=== PATIENT | female | born 1930 | race Caucasian/White ===

== ENCOUNTER 2020-05-20 00:09 | Inpatient (IN) ==
--- NOTE | 2020-05-20 00:28 | Emergency Department Note ---
Impression & Plan Altered mental status, Acute confusion, Generalized weakness, Fall ED Provider Note Name: MARI NERI Age: 89 Sex: F Arrives Via: Ambulance Informant: EMS, Nursing ED Provider: Johnathan Dang MD Chief Complaint: Found on ground Impression: Altered Mental Status Acute Confusion Generalized Weakness Fall Medical Decision Makin yr female with complicated PMH (Metastatic Breast CA, CHF, CKD, DMII, HTN, Pulm HTN, COPD, Heart block with pacemaker, GERD, TIA, Cdiff) recently discharged from [facility], transferred to [facility] where she was at for less the 24 hours. She was found laying on floor this evening with unknown downtime and EMS contacted. On exam patient appears to have some very mild right weakness which is variable and difficult quantify given her somnolence, severe hard of hearing and doesn't follow commands well (and later in exam left hand seemed weak). Furthermore right exotropia noted with right eye. Was able to get records and appears that this somnolence has been increasing and furthermore she has bleeding risks with thrombocytopenia. Given uncertainty as well as risks I felt that stroke alert was not indicated, not would TPA be possible and with her symptoms she would not be intervention candidate. Fortunately daughter arrived shortly after from [place] and notes that these symptoms have been worsening over a several week period. Extensive work-up done with CT head showing possible subacute vs chronic infarct right temporal region, along with chronic other age related findings. She does not appear to be acutely infected. No evidence ACS. No evidence trauma. Without hypoxia nor respiratory difficulty I doubt PE as cause for confusion. I suspect that over last week or two she had some sort of stroke while off asa/anticoagulation given her Thrombocytopenia. Will hold any anticoagulation awaiting further confirmation cva History recently has been that over the last month quite complicated course with PNA and UTI followed by [facility], several weeks at [facility] and due to no local NH in [place] available she was transferred out here to [facility]. Triage/Nursing Notes reviewed by Me Additional history obtained from outside records obtained Differentials:Infection, dehydration, metabolic abnormality, hypo/hyperglyce derrick, electrolyte disturbance, anemia, hypoxia, cardiac sources, intracerebral event, toxicologic, neurologic, as well as other pathologies. Vital Signs: reviewed and remarkable for HTN Interventions: saline lock Labs:Reviewed and remarkable for thrombocytopenia Imaging:X ray results are stated below per my interpretation: Chest: 1 view: No infiltrate, no effusion, normal cardiac border. Pelvis: 1 vewi: no fracture no dislocation [employer] Radiologist interpretation reviewed by me: CT head cervical. No acute findings. 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 No previous for comparison Cardiac/Tele Monitoring: Cardiac Monitoring: An Order was placed for continuous cardiac monitoring. The monitor shows a rate of 70 with a paced rhythm. Consults:Dr Sofiya Leggett Hospitalist Plan: Disposition:Hospitalization. Referred to: PCP Condition: Fair Blood pressure:Elevated - Referred to Hospitalist Prescriptions:None PDMP: n/a History of Present Illness:89 / F arrives for evaluation of fall. Patient just arrived to [facility] yesterday. This evening she was found laying on the ground. Unknown when she fell. Unknown why she feel. Patient apparently at baseline is quite somnolent and minimally responsive per EMS and that she is currently at her baseline. She was given no medications prior to arrival. No known symptoms other than earlier apparently shelter thought she had back pain. She reportedly had stroke in past. ROS: Patient not responsive enough for ROS Past Medical History:Metastatic Breast CA, CHF, CKD, DMII, HTN, Pulm HTN, COPD, Heart block with pacemaker, GERD, TIA, Cdiff Past Surgical History:Lumpectomy, Pacemaker, Partial Mastectomy, Rotator Cuff Family History:DMII, Cancer throughout family including parents and siblings. Daughter with breast CA Social History:From shelter, Previous smoker, , no etoh/drugs Home Medications:See Below. Allergies:See Below Vitals:Blood Pressure: 172/91, Pulse 69, RR 16, T 36.5C, O2 100% on NC 3L Physical Exam: GENERAL: Patient is elderly, chronically unwell appearing and in no acute distress. EYES: No scleral icterus, unremarkable pupils. ENT: Mucous membranes moist, no nasal congestion. NECK: No masses appreciated, nomeningismus, trachea is midline. RESPIRATORY: No dyspnea. Clear to auscultation and equal bilaterally. No wheeze, no rhonchi. CARDIOVASCULAR: Regular rate and rhythm.No murmurs, rubs, gallops appreciated. GASTROINTESTINAL: Abdomen soft, non-tender, no peritonitis.Bowel sounds positive.No masses appreciated. BACK: No midline tenderness, no CVA tenderness EXTREMITIES: Normal motion all extremities, no cyanosis, no edema. NEUROLOGIC: Looking around the room, weakly answers some questions, appears to have right sided neglect and may be weak but unable to get good exam as she doesn't follow commands, questionable right facial weakness vs just right eye exotropia SKIN: No rash, no jaundice, no diaphoresis. GCS: 14 ED Course: Times/Reassessments: Stable, somnolent, maintains O2 on NC Johnathan Dang MD Past Med/Surg History Social History Preferred Language: Ukrainian Communication Ability: Effective Livestock [employer]er Required: No Beliefs That Will Affect Care: None Current Living Situation: Rehab Other Information That Helps Us Care for You: No Feels Safe at Home: Yes Safety Concerns: Feels Safe At This Time Smoking Status: Never smoker Hx Alcohol Use: No Hx Substance Use: No Allergies Allergies Allergy/AdvReac Type Severity Reaction Status Date / Time pollen extracts Allergy Unknown Verified 05/20/20 02:32 Home Meds Home Medications Medication Instructions Recorded Confirmed acetaminophen 500 mg PO Q6H PRN MDD 3000mg/24hr 05/20/20 05/20/20 albuterol sulfate 2 puff INHALATION Q4 PRN 05/20/20 05/20/20 albuterol sulfate 2.5 mg INHALATION Q4 PRN 05/20/20 05/20/20 amoxicillin 2,000 mg PO ONCE PRN 05/20/20 05/20/20 aspirin 81 mg PO DAILY 05/20/20 05/20/20 calcium carbonate-vitamin D3 1 cap PO BID 05/20/20 05/20/20 [Calcium 600 + D(3)] carvedilol 12.5 mg PO BIDM 05/20/20 05/20/20 citalopram 20 mg PO DAILY 05/20/20 05/20/20 cranberry 180 mg PO BID 05/20/20 05/20/20 docusate sodium [Colace Clear] 50 mg PO BID 05/20/20 05/20/20 ferrous gluconate 240 mg PO DAILY 05/20/20 05/20/20 fluticasone propion-salmeterol 1 inh INHALATION BID 05/20/20 05/20/20 [Wixela Inhub] fluticasone propionate [Flonase 1 spray INTRANASAL DAILY 05/20/20 05/20/20 Allergy Relief] furosemide 40 mg PO BID 05/20/20 05/20/20 loratadine 10 mg PO DAILY 05/20/20 05/20/20 vtzluuvb-opj-PD-lycopen-lutein 1 tab PO DAILY 05/20/20 05/20/20 [Centrum Silver] nitroglycerin [Nitrostat] 0.4 mg SUBLINGUAL UD PRN 05/20/20 05/20/20 pantoprazole 40 mg PO DAILY 05/20/20 05/20/20 polyethylene glycol 3350 [Miralax] 17 g PO DAILY 05/20/20 05/20/20 simethicone 80 mg PO Q6 PRN 05/20/20 05/20/20 simvastatin 40 mg PO PM 05/20/20 05/20/20 vancomycin [Firvanq] 500 mg PO Q6 05/20/20 05/20/20 Results & Data (ED) Vital Signs Vital Signs - 24 hr 05/20/20 00:23 05/20/20 02:00 05/20/20 03:45 Temperature 36.5 C Temperature Source Oral Pulse Rate 80 Pulse Rate [Right Finger] 68 69 Pulse Rhythm Regular Pulse Strength Normal Respiratory Rate 16 18 16 Respiratory Effort / Characteristics Non-Labored Spontaneous Respiratory Depth Normal Normal Normal Blood Pressure 163/100 H Blood Pressure [Right Arm] 163/100 H 172/91 H Blood Pressure Mean 121 Blood Pressure Mean [Right Arm] 121 118 Blood Pressure Position Lying Blood Pressure Position [Right Arm] Lying Lying Pulse Oximetry 100 100 100 Oxygen Delivery Method Nasal Cannula Room Air Nasal Cannula Oxygen Flow Rate 3 Sepsis Recent Fever Within 48 Hours No Sepsis Action Taken by Nursing No Action Required Laboratory Data Result diagrams: 05/20/20 01:07 05/20/20 01:07 Lab Results 05/20/20 05/20/20 05/20/20 Range/Units 00:46 01:07 01:07 WBC (4.8-10.8) K/uL RBC (4.2-5.4) M/uL Hgb (12.0-16.0) g/dL Hct (37-47) % MCV (80-100) fL MCH (25-34) pg MCHC (32-36) g/dL RDW Std Deviation (36.4-46.3) fL RDW Coeff of Aleida (11.5-14.5) % Plt Count (130-400) K/uL MPV (7.4-10.4) fL Immature Gran % (Auto) % Neut % (Auto) % Lymph % (Auto) % Nobles % (Auto) % Eos % (Auto) % Baso % (Auto) % Neut # (Auto) (1.4-6.5) K/uL Lymph # (Auto) (1.2-3.4) K/uL Nobles # (Auto) (0.11-0.59) K/uL Eos # (Auto) (0-0.5) K/uL Baso # (Auto) (0-0.2) K/uL Immature Gran # (Auto) (0.00-0.02) K/uL Absolute Nucleated RBC (0-0) K/uL Nucleated RBC % (auto) % Platelet Estimate (Normal) Macrocytosis PT 12.3 H (9.0-12.0) Seconds INR 1.2 H (0.9-1.1) Sodium 147 H (136-145) mmol/L Potassium 3.7 (3.5-5.1) mmol/L Chloride 114 H (98-107) mmol/L Carbon Dioxide 29 (21-32) mmol/L Anion Gap 4.0 (3-11) BUN 15 (7-18) mg/dl Creatinine 0.65 (0.6-1.2) mg/dl Est Cr Clr Drug Dosing 66.2 ml/min Est GFR ( Amer) 92.5 Est GFR (Non-Af Amer) 79.8 BUN/Creatinine Ratio 23.1 H (10-20) Glucose 134 H (70-99) mg/dl Calcium 7.9 L (8.5-10.1) mg/dl Total Creatine Kinase 36 (26-192) U/L Troponin I 0.025 (0-0.045) ng/ml Urine Color Dark Yellow Urine Appearance Clear (Clear) Urine pH 5.0 (4.5-7.5) Ur Specific [place] 1.023 (1.000-1.030) Urine Protein Trace H (Negative) Urine Glucose (UA) Negative (Negative) Urine Ketones Negative (Negative) Urine Blood Negative (Negative) Urine Nitrite Negative (Negative) Urine Bilirubin Negative (Negative) Urine Urobilinogen Negative (Negative) Ur Leukocyte Esterase Trace H (Negative) Urine WBC (Auto) 1-5 (0-5) /hpf Urine RBC (Auto) 0-4 (0-4) /hpf U Hyaline Cast (Auto) 1-5 (0-5) /lpf U Epithel Cells (Auto) >30 H (0-5) /lpf Urine Bacteria (Auto) Negative (Negative) 05/20/20 Range/Units 01:07 WBC 5.04 (4.8-10.8) K/uL RBC 2.95 L (4.2-5.4) M/uL Hgb 10.2 L (12.0-16.0) g/dL Hct 33.1 L (37-47) % MCV 112.2 H (80-100) fL MCH 34.6 H (25-34) pg MCHC 30.8 L (32-36) g/dL RDW Std Deviation 70.5 H (36.4-46.3) fL RDW Coeff of Aleida 17.3 H (11.5-14.5) % Plt Count 73 L (130-400) K/uL MPV 11.2 H (7.4-10.4) fL Immature Gran % (Auto) 6.7 % Neut % (Auto) 66.5 % Lymph % (Auto) 18.3 % Nobles % (Auto) 7.7 % Eos % (Auto) 0.4 % Baso % (Auto) 0.4 % Neut # (Auto) 3.35 (1.4-6.5) K/uL Lymph # (Auto) 0.92 L (1.2-3.4) K/uL Nobles # (Auto) 0.39 (0.11-0.59) K/uL Eos # (Auto) 0.02 (0-0.5) K/uL Baso # (Auto) 0.02 (0-0.2) K/uL Immature Gran # (Auto) 0.34 H (0.00-0.02) K/uL Absolute Nucleated RBC 0.03 H (0-0) K/uL Nucleated RBC % (auto) 0.6 % Platelet Estimate Decreased L (Normal) Macrocytosis Present PT (9.0-12.0) Seconds INR (0.9-1.1) Sodium (136-145) mmol/L Potassium (3.5-5.1) mmol/L Chloride (98-107) mmol/L Carbon Dioxide (21-32) mmol/L Anion Gap (3-11) BUN (7-18) mg/dl Creatinine (0.6-1.2) mg/dl Est Cr Clr Drug Dosing ml/min Est GFR ( Amer) Est GFR (Non-Af Amer) BUN/Creatinine Ratio (10-20) Glucose (70-99) mg/dl Calcium (8.5-10.1) mg/dl Total Creatine Kinase (26-192) U/L Troponin I (0-0.045) ng/ml Urine Color Urine Appearance (Clear) Urine pH (4.5-7.5) Ur Specific [place] (1.000-1.030) Urine Protein (Negative) Urine Glucose (UA) (Negative) Urine Ketones (Negative) Urine Blood (Negative) Urine Nitrite (Negative) Urine Bilirubin (Negative) Urine Urobilinogen (Negative) Ur Leukocyte Esterase (Negative) Urine WBC (Auto) (0-5) /hpf Urine RBC (Auto) (0-4) /hpf U Hyaline Cast (Auto) (0-5) /lpf U Epithel Cells (Auto) (0-5) /lpf Urine Bacteria (Auto) (Negative) Discharge Plan Visit Data *Final* Discharge Date/Time: 05/20/20 04:40 Chief Complaint: Fall Stated Complaint: FALL/BACK PAIN ED Provider: Johnathan Dang Discharge Problem: Altered mental status, Acute confusion, Generalized weakness, Fall Patient Disposition: Admitted As Inpatient Discharge Instructions Interventions: ED Discharge Assessment Last Done: 05/20/20 04:40 Discharge Problem: Altered mental status Qualifiers: Altered mental status type: stupor Qualified Code(s): R40.1 - Stupor Fall Qualifiers: Encounter type: initial encounter Qualified Code(s): W19.XXXA - Unspecified fall, initial encounter
[2020-05-20 01:34] LABS: INR 1.2 (0.9-1.1); Prothrombin Time 12.3 Seconds (9.0-12.0)
[2020-05-20 01:35] LABS: Appearance Urine Clear (Clear); Bacteria Urine Automated Negative (Negative); Bilirubin Urine Negative (Negative); Blood Urine Negative (Negative); Color Urine Dark Yellow; Epithelial Cell Urine Auto >30 /lpf (0-5); Glucose Urine UA Negative (Negative); Ketones Urine Negative (Negative); Leukocyte Esterase Urine Trace (Negative); Nitrite Urine Negative (Negative); Protein Urine Trace (Negative); RBC Urine Automated 0-4 /hpf (0-4); Specific Gravity Urine 1.023 (1.000-1.030); Urobilinogen Urine Negative (Negative)
[2020-05-20 01:38] LABS: BUN Creatinine Ratio 23.1 (10-20); Calcium 7.9 mg/dl (8.5-10.1); Creatinine Clr Calc Pharmacy 66.2 ml/min; Est GFR (African American) 92.5; Est GFR (Non-African American) 79.8; Potassium 3.7 mmol/L (3.5-5.1)
[2020-05-20 01:42] LABS: Troponin I 0.025 ng/ml (0-0.045)
[2020-05-20 01:49] LABS: Hematocrit (blood only) 33.1 % (37-47); Hemoglobin 10.2 g/dL (12.0-16.0); Mean Corpuscular Hemoglobin 34.6 pg (25-34); Mean Corpuscular Hgb Conc 30.8 g/dL (32-36); Mean Corpuscular Volume 112.2 fL (80-100); Mean Platelet Volume 11.2 fL (7.4-10.4); Nucleated RBC # (auto) 0.03 K/uL (0-0); Nucleated RBC % (auto) 0.6 %; Platelet Count 73 K/uL (130-400); RDW Coefficient of Variation 17.3 % (11.5-14.5); RDW Standard Deviation 70.5 fL (36.4-46.3); Red Blood Count 2.95 M/uL (4.2-5.4); White Blood Count 5.04 K/uL (4.8-10.8)
[2020-05-20 01:50] LABS: Basophils # (auto) 0.02 K/uL (0-0.2); Basophils % (auto) 0.4 %; Eosinophils # (auto) 0.02 K/uL (0-0.5); Eosinophils % (auto) 0.4 %; Immature Granulocytes # (auto) 0.34 K/uL (0.00-0.02); Immature Granulocytes % (auto) 6.7 %; Lymphocytes # (auto) 0.92 K/uL (1.2-3.4); Lymphocytes % (auto) 18.3 %; Macrocytosis Present; Monocytes # (auto) 0.39 K/uL (0.11-0.59); Monocytes % (auto) 7.7 %; Neutrophils # (auto) 3.35 K/uL (1.4-6.5); Neutrophils % (auto) 66.5 %; Platelet Estimate Decreased (Normal)
[2020-05-20] MEDS ORDERED: SIMETHICONE 80 MG CHEW PO PRN (05:58)
[2020-05-20] MEDS ORDERED: ACETAMINOPHEN 325 MG TAB PO PRN (05:58)
[2020-05-20] MEDS ORDERED: ALBUTEROL HFA 8 GM INHALER INH PRN (05:58)
[2020-05-20] MEDS ORDERED: ONDANSETRON INJ 2 MG/ML 2 ML VIAL IV PRN (05:58)
[2020-05-20] MEDS ORDERED: ALBUTEROL 0.083% NEBU SOLN 3 ML VIAL INH PRN (05:58)
[2020-05-20] MEDS ORDERED: PHARMACIST DISCHARGE MED REC CONSULT PRN (05:58)
[2020-05-20] MEDS ORDERED: NITROGLYCERIN SL 0.4 MG/TAB TAB SL PRN ×2 (05:58)
--- NOTE | 2020-05-20 06:40 | History and Physical Report ---
DATE OF ADMISSION: 05/20/2020 CHIEF COMPLAINT: Status post fall. HISTORY OF PRESENT ILLNESS: This 89-year-old female with past medical history significant for type 2 diabetes, not on any medications, chronic kidney disease stage III, hyperlipidemia, COPD, nocturnal hypoxemia, history of complete heart block status post pacemaker, hypertension, diastolic CHF, history of CVA in the past, hypertension, GERD, C. diff colitis, urinary incontinence, metastatic breast cancer, chronic bilateral thoracic back pain, chemo induced neutropenia, thrombocytopenia, history of pancytopenia. Currently at [facility] who comes with a fall. The patient had a couple of courses of pneumonia and was admitted to [place]. After that about 2-1/2 weeks ago, she developed diarrhea and C. diff was positive, she went to the ER and got discharged and then she became more lethargic at home. The patient lives with her daughter. Daughter works in [employer] [place]. Daughter noticed that she was likely having difficulty speaking. She thought the patient had a stroke and she called to EMS and was admitted to [place] where she was treated for infectious C. difficile colitis. She stayed there for 2-1/2 weeks and she also had ascites, taken about 730ml of fluid and was treated with antibiotics for spontaneous bacterial peritonitis. She still has some few more courses of p.o. vancomycin. The patient since then become very weak. As per daughter, she did not ambulate since she got admitted to [place] and she is somewhat confused. She couple of times had aspiration episodes at [place]. As per daughter, speech is not back to her normal. 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 Her Plavix was stopped secondary to thrombocytopenia. Felodipine was discontinued due to low blood pressure and Coreg dose was reduced. She has signed POLST form as per [place] and she is DNR. She was discharged to [facility] yesterday. She was found on the floor, no one saw her falling on the floor and she does not know how long she stayed there and she was brought in here and imaging studies CAT scan shows subacute or right chronic temporal lobe infarct. Currently, the patient is somewhat drowsy, arousable, can tell her name, knows that she is in the hospital, can tell today's date. Denies any chest pain, no nausea, no abdominal pain, no headaches, no fever, no chills, no cough, no shortness of breath. Hemodynamics are stable, could not get complete history from the patient as patient is somewhat drowsy. All history we got from the daughter who is at bedside and from the records. ALLERGIES: POLLEN EXTRACTS. PAST MEDICAL HISTORY: As mentioned above. PAST SURGICAL HISTORY: Right breast lumpectomy, colonoscopy, cervical lesion biopsy, pacemaker placement, ligation of oviducts, left partial mastectomy, right partial mastectomy, appendectomy, removal of cataracts, sigmoidoscopy with biopsy, total hip arthroplasty. MEDICATIONS: The patient is on Coreg 12.5 mg p.o. b.i.d., Mylicon 80 mg p.o. q. 6 hours p.r.n., vancomycin 10 mL every 6 hours for 4 more days, albuterol nebulization every 4 hours p.r.n., MiraLax 17 grams p.o. daily, Nitrostat 0.4 mg sublingual p.r.n., albuterol 2 puffs every 4 hours p.r.n., Advair Diskus 100/50 one puff b.i.d., Lasix 40 mg p.o. b.i.d., citalopram 20 mg p.o. daily, Protonix 40 mg p.o. daily, simvastatin 40 mg p.o. daily, Tylenol 500 mg p.o. q. 6 hours p.r.n., Colace 50 mg p.o. b.i.d. p.r.n., Flonase 2 sprays into each nostril daily, ferrous sulfate 240 mg p.o. daily, cranberry 180 mg p.o. b.i.d., amoxicillin 2 grams 1 hour prior to dental work, Claritin 10 mg p.o. daily, oxygen 3 liters at bedtime, calcium plus vitamin D 1 tablet p.o. b.i.d., aspirin 81 mg p.o. daily, Centrum Silver 1 tablet daily. FAMILY HISTORY: Significant for daughter has breast cancer. Brother had lung cancer. Father had cancer. Sister has breast cancer. Brother has diabetes. Sister has diabetes. SOCIAL HISTORY: , currently lives with daughter. Quit smoking in , smoked 1 pack a day for 2 years. No alcohol use, no drug use. REVIEW OF SYMPTOMS: As per HPI, could not get complete review of symptoms as the patient is somewhat drowsy. PHYSICAL EXAMINATION: VITAL SIGNS: Temperature 36.5, pulse 68, respiratory rate 18, blood pressure 163/-100 and oxygen 100% on room air. HEENT: No pallor, no icterus. Pupil equal, round, and reactive to light. 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 NECK: No JVD, no neck masses. CARDIOVASCULAR: S1, S2 heard, regular rate and rhythm, no murmur, no gallop. RESPIRATORY SYSTEM: Normal AP diameter. No accessory muscle use. No wheezing, no crackles. ABDOMEN: Soft, bowel sounds present, nontender. No distention. CENTRAL NERVOUS SYSTEM: Alert and oriented x3. Speech is clear. Tongue is midline. Obeys simple commands, not able to fully lift her upper extremities and also not able to lift her lower extremities. Babinski negative. EXTREMITIES: Bilateral lower extremity, mild edema seen. No erythema seen. LABORATORY DATA: WBC 5, hemoglobin 10.2, hematocrit 33.1, platelets 73. PT 12.3, INR 1.2. Sodium 147, potassium 3.7, chloride 114, CO2 29, BUN 15, creatinine 0.6, serum glucose 134, calcium 7.9. Troponin I 0.025. Urinalysis negative, trace leukocyte esterase. CT head 2.4 cm ill-defined density in the right temporal lobe, likely infarct possible subacute versus chronic. CT cervical spine, severe osteoporosis at C5-C6 and C6-C7, no acute cervical spine fracture or subluxation. Chest x-ray, no acute findings. EKG: Ventricular paced rhythm with PVCs at a rate of 72. ASSESSMENT AND PLAN: This 89-year-old female who had a fall. 1. Fall: Do not know how long she stayed on the floor.Very weak. She had a recent hospitalization at [place] for 2-1/2 weeks, since then she is very weak, she is not ambulating. Question of some slurred speech, question of stroke, CAT scan showing right temporal lobe chronic versus subacute infarct. Cannot do MRI scan because of the pacemaker> Weakness mostly from could be deconditioning. We will admit to med/tele. We will get a carotid Doppler, echocardiogram, speech evaluation, PT/OT and neurology evaluation. The patient is on aspirin. Plavix was stopped because of low platelets at [place], closely monitor in the med/tele. 2. Diabetes: Not on medication, follow HbA1c levels, placed on diabetic diet, follow blood sugars. 3. Chronic obstructive pulmonary disease: Currently stable. Continue home inhalers. 4. Clostridium difficile colitis: To Complete a course of p.o. vancomycin. 5. Complete heart block: Status post pacemaker. 6. Hypertension: Coreg, Lasix. Will monitor the blood pressure. 7. Metastatic breast cancer: Currently chemo is on hold. Follow with hematology/oncology after discharge. 8. Chronic kidney disease stage III: We will follow the labs. 9. Chemotherapy-induced neutropenia, currently, thrombocytopenia: Follow the labs. 10. Nocturnal hypoxemia: Oxygen bedtime. 11. Chronic diastolic chf. On Lasix. Monitor for volume overload. 11. Deep venous thrombosis prophylaxis: Sequential compression devices for now. DISPOSITION: Monitor in med/surg tele. PT and OT. Social Service to help with discharge planning. Code status: DNR/DNI as per my discussion with the daughter. [place]
[2020-05-20] MEDS: RASPBERRY SYRUP 5 ML UDP PO SCH ×3 (06:53→17:00)
[2020-05-20] MEDS: VANCOMYCIN HCL 500 MG/10 ML SOLN PO SCH ×3 (06:53→17:00)
[2020-05-20] MEDS ORDERED: RASPBERRY SYRUP 5 ML UDP PO SCH (07:00)
--- NOTE | 2020-05-20 07:33 | CT Scan Report ---
CT SCAN OF THE BRAIN WITHOUT IV CONTRAST CLINICAL HISTORY: Fall. COMPARISON STUDY: No priors. TECHNIQUE: Unenhanced axial CT scan of the brain is performed from the vertex to the skull base. A do se lowering technique was utilized adhering to the principles of ALARA. CT DOSE: 922.06 mGy.cm FINDINGS: Brain parenchyma: There are age-related involutional changes noting mild to moderate subcortical and periventricular microangiopathic change. There is focal loss of adams-white matter differentiation id entified in the right temporal lobe on image #10. This is concerning for subacute ischemia. There is no hemorrhage or mass effect. Adams-white matter differentiation is otherwise preserved. There are chr onic lacunar infarcts identified in the left caudate head and the left basal ganglia. No extra-axial fluid collection is seen. Ventricles, sulci, cisterns: Prominent secondary to involutional change. Intracranial vasculature: There is atherosclerotic calcification of the cavernous carotid and vertebr al arteries. Calvarium: The skeletal structures are osteopenic. No depressed calvarial fracture is identified. Sinuses and mastoids: The visualized paranasal sinuses are clear. The mastoid air cells are well pneu matized. Orbits: The bony orbits are grossly intact. There are bilateral ocular lens implants. IMPRESSION: 1. There is loss of adams-white matter differentiation identified in the right temporal lobe concernin g for subacute ischemia. 2. There is no hemorrhage or mass effect. 3. Adams-white matter differentiation is otherwise maintained. ACT 112: Negative or not required by law. Electronically signed by: Fito Real M.D. 05/20/2020 7:31 AM
--- NOTE | 2020-05-20 07:42 | Electrocardiogram Report ---
Test Reason : Blood Pressure : / mmHG Vent. Rate : 072 BPM Atrial Rate : 068 BPM P-R Int : 000 ms QRS Dur : 186 ms QT Int : 480 ms P-R-T Axes : 000 -46 137 degrees QTc Int : 525 ms Ventricular-paced rhythm with occasional Premature ventricular complexes Abnormal ECG No previous ECGs available Confirmed by Gael Bradley ([id number]) on 05/20/2020 7:41:36 AM Referred By: [facility] Confirmed By:Gael Bradley
--- NOTE | 2020-05-20 07:43 | CT Scan Report ---
CT SCAN OF THE CERVICAL SPINE CLINICAL HISTORY: Trauma. Fall. COMPARISON STUDY: No priors. TECHNIQUE: CT scan of the cervical spine is performed from the skull base to the upper thoracic spine . Images are reviewed in the axial, sagittal, and coronal planes. IV contrast was not administered fo r this examination. A dose lowering technique was utilized adhering to the principles of ALARA. FINDINGS: Skeletal structures: The skeletal structures are osteopenic. There is no evidence of fracture or subl uxation involving the cervical spine. Vertebral body height is maintained. There is minimal anterolis thesis at C4-C5. Minimal retrolisthesis is seen at C5-C6. Large anterior osteophytes are seen in the lower cervical spine. The odontoid process and lateral masses are intact. The atlantoaxial articulati on is preserved noting advanced productive degenerative change. The spinous processes appear intact. There is moderate multilevel cervical spondylosis. Uncovertebral and facet arthropathy contribute to neural foraminal narrowing at several levels. There are bilateral cervical ribs. Patchy sclerotic jese nge is identified in the right posterior third rib. There is also a sclerotic lesion suggested in the body of C3. Intervertebral discs: There is advanced disc space narrowing at C5-C6. Mild disc space narrowing is s een at the remaining cervical levels. Central canal: A posterior disc osteophyte complex at C5-C6 may contribute to acquired compromise of the central canal. Soft tissues: The prevertebral and paraspinous soft tissues are within normal limits. There is advanc ed atherosclerotic calcification of the carotid bulbs. Calvarium: The visualized calvarium at the skull base appears intact. Brain parenchyma: Partially visualized brain parenchyma the skull base is within normal limits. Sinuses and mastoids: The visualized paranasal sinuses are clear. The mastoid air cells are well pneu matized. Lung apices: Question tiny pulmonary nodules in the right upper lobe. These are only partially imaged . Upper lobe lung parenchyma is otherwise clear As visualized. IMPRESSION: 1. There is no evidence of fracture or subluxation involving the cervical spine. 2. Osteopenia and spondylotic change as above. 3. Question sclerotic lesions within the right posterior third rib and the body of C3. These are path ologically indeterminant and osteoblastic metastases are not excluded. Correlate with patient's oncol ogical history will be required. 4. Question mild pulmonary nodularity in the right upper lobe. ACT 112: Negative or not required by law. Electronically signed by: Fito Real M.D. 05/20/2020 7:42 AM
--- NOTE | 2020-05-20 08:43 | XRay Report ---
XR pelvis 1-2V routine CLINICAL HISTORY: Pelvic pain status post trauma COMPARISON: None. DISCUSSION: There are postsurgical changes of a total left hip arthroplasty. Degenerative changes are present within the lower lumbar spine. No acute fractures are visualized. There is no SI joint diast ases. There is no symphysis diastases. Sclerosis of the left ischio pubic ring likely secondary to an old healed fracture. IMPRESSION: No acute fractures identified. ACT 112: Negative or not required by law. Electronically signed by: Angelito Palacios M.D. 05/20/2020 8:41 AM
--- NOTE | 2020-05-20 08:44 | XRay Report ---
XR chest 1V portable CLINICAL HISTORY: Trauma COMPARISON STUDY: No previous studies for comparison. FINDINGS: The heart is enlarged. There is a left subclavian dual-chamber central venous pacemaker pre sent. Surgical clips project in the right axillary region. There is no pneumothorax. There is no fail ure. There is no focal pulmonary consolidation. There are no significant pleural effusions.[Slightly prominent right basilar markings are likely atelectatic IMPRESSION: Slight prominence of the right basilar markings statistically atelectatic. ACT 112: Negative or not required by law. Electronically signed by: Angelito Palacios M.D. 05/20/2020 8:43 AM
[2020-05-20] MEDS: FLUTICASONE/VILANTEROL 100/25MCG 14 PUFFS/INHALER INH SCH (08:57)
[2020-05-20] MEDS: FLUTICASONE PROPIONATE NA SPR 16 GM BTL SCH (08:57)
[2020-05-20] MEDS: ASPIRIN 81 MG ECTAB PO SCH (08:58)
[2020-05-20] MEDS: CALCIUM 600MG + VIT D 400 IU TAB PO SCH ×2 (08:58→21:27)
[2020-05-20] MEDS: POLYETHYLENE (MIRALAX) 17 GM PACK PO SCH (08:58)
[2020-05-20] MEDS: CITALOPRAM 20 MG TAB PO SCH (08:58)
[2020-05-20] MEDS: FUROSEMIDE 40 MG TAB PO SCH ×2 (08:59→16:58)
[2020-05-20] MEDS: MULTIVITAMIN TAB PO SCH (08:59)
[2020-05-20] MEDS: PANTOprazole 40 MG TAB PO SCH (08:59)
[2020-05-20] MEDS: LORATADINE 10 MG TAB PO SCH (08:59)
[2020-05-20] MEDS: DOCUSATE SODIUM 100 MG CAP PO SCH ×2 (08:59→21:27)
[2020-05-20] MEDS: carvediloL 12.5 MG TAB PO SCH ×2 (08:59→16:58)
[2020-05-20] MEDS: FERROUS GLUCONATE 324 MG TAB PO SCH (08:59)
[2020-05-20] MEDS ORDERED: CRANBERRY PO SCH (09:00)
--- NOTE | 2020-05-20 10:44 | Ultrasound Report ---
ULTRASOUND OF THE CAROTID ARTERIES CLINICAL HISTORY: Stroke. COMPARISON STUDY: No priors. TECHNIQUE: Real-time, grayscale, and color Doppler sonography of the carotid arteries is performed. I mages are reviewed in the transverse and longitudinal planes. FINDINGS: Blood pressures were not assessed due to limb restrictions. The carotid arteries are patent bilaterally and demonstrate antegrade flow. There is moderate shadowi ng atherosclerotic plaque seen in the carotid bulbs bilaterally. Normal doppler arterial waveforms ar e seen throughout. Velocity measurements are listed below. Common carotid peak systolic velocity (cm/sec): RIGHT: 82 LEFT: 77 ICA proximal peak systolic velocity (cm/sec): RIGHT: 89 LEFT: 139 ICA mid peak systolic velocity (cm/sec): RIGHT: 89 LEFT: 136 ICA distal peak systolic velocity (cm/sec): RIGHT: 74 LEFT: 71 ICA/CC peak systolic ratio: RIGHT: 1.1 LEFT: 1.8 Antegrade flow was shown in the vertebral arteries. The external carotid arteries are patent. IMPRESSION: 1. There is no sonographic evidence of hemodynamically significant stenosis in the right carotid elvira rial system. 2. There is evidence of 50-69% stenosis of the proximal left internal carotid artery by velocity triny ramirez. 3. Antegrade flow is shown in the vertebral arteries. ACT 112: Negative or not required by law. Electronically signed by: Fito Real M.D. 05/20/2020 10:43 AM
--- NOTE | 2020-05-20 16:49 | Hospitalist Progress Note ---
Date of Service May 20, 2020 Assessment & Plan (1) Fall: 89-year-old with multiple complicated past medical history as mentioned in H&P was admitted from [facility] with a history of unwitnessed fall She has been very weak generally and has not been ambulant for the last month or so She was discharged from [facility] on last and has been in [facility] since that time She was found on the ground beside her bed curled up without any incontinence or significant injury Skeletal survey and CAT scan remain unremarkable She will get PT and OT evaluation before discharge from the hospital (2) Generalized weakness: She has been generally weak and almost bedbound for the last few months In and out from [facility] and discharged to [facility] on last And weakness seems to be multifactorial-deconditioning from recent recurrent hospitalization and infections, metastatic breast cancer on recent chemo, doubt a stroke and/or infection are causing this problem Again she will need to have PT and OT evaluation History of CVA Was on aspirin and Plavix with Plavix is off due to thrombocytopenia Echo and carotid ultrasound remain unremarkable Repeat CT of the head did show right temporal hypodensity which is suggestive of infarction Discussed with Dr. London Only aspirin will be continued and Plavix will be discontinued due to thrombocytopenia and to decrease the risk of bleeding Speech therapy evaluation Will have a barium swallow study tomorrow to document any aspiration while eating She has been eating and drinking reasonably Strongly advised to drink more fluid (3) Altered mental status: Noted to have more confusion as of yesterday Concern looking better since this morning Has been eating reasonably and drinking reasonably Remains pleasantly confused (4) CKD (chronic kidney disease), stage III: Has chronic kidney disease with normal electrolytes (5) Complete heart block: Status post pacemaker placement No acute cardiac issue (6) COPD (chronic obstructive pulmonary disease): No acute exacerbation (7) Diastolic CHF: Has bilateral leg edema seems to be chronic Chest x-ray did not show any fluid overload and of CHF Echo of the heart-atrial fibrillation with ventricular pacing rhythm, severe concentric left ventricular hypertrophy with normal wall motion and EF of 65 to 70%, aortic valve sclerosis without significant stenosis, mild aortic regurgitation (8) C. difficile colitis: History of C. difficile colitis about 3 weeks back Has been on vancomycin (9) Diabetes mellitus: We will put her on SSI (10) Metastatic breast cancer: Has not been getting any chemo and radiation (11) Thrombocytopenia: History of pancytopenia and thrombocytopenia Likely secondary to chemo induced and could be due to infiltration of bone marrow from breast cancer We will monitor DVT prophylaxis SCDs CODE STATUS DNR/DNI Discussed in detail with the daughter Admission and Anticipated Discharge Date Admission Date: May 20, 2020 Subjective The patient was seen and examined in the telemetry unit in presence of the daughter She was admitted from [facility] following an unwitnessed fall without any significant noticeable injury She has been more lucent and communicating almost normally She complains to have weak legs and has not been able to elevate dose with ongoing back pain status post fall 05/21/2020 The patient was seen and examined in presence of the daughter She remains extremely weak and lethargic but does not have any focal neuro deficit on examination She has been conversing reasonably and has been eating and drinking reasonably She will be getting more physical therapy before being discharged Review of Systems Review of Systems: All systems reviewed and are unremarkable except as noted below Constitutional: + malaise, + weakness and + anorexia Respiratory: no cough and no dyspnea Cardiovascular: no chest pain and no dyspnea Gastrointestinal: no abdominal pain Musculoskeletal: + back pain (Without radiation to the legs) Neurologic: Pleasantly confused confused. Physical Exam Physical Exam: Lying in bed comfortably Constitutional: + ill appearing and + obese; no acute distress Eyes: PERRL, conjunctivae normal, anicteric sclerae ENMT: external ear and nose normal, oropharynx normal Neck: trachea midline, no thyromegaly Respiratory: normal respiratory effort; no respiratory distress Auscultation: + crackles (Minimal crackles at the bases) Cardiovascular: Rate/Rhythm: regular rate and regular rhythm Heart Sounds: no murmur Extremities: + edema (Bilateral leg edema seems to be improving) Gastrointestinal (Abdomen): Inspection/Auscultation: abdomen normal to inspection; abdomen not distended Percussion/Palpation: abdomen soft; abdomen nontender Musculoskeletal: Complains to have lower back pain without any localized tenderness over lumbosacral spine. No localized bruising identified Neurologic: moves all extremities Generally very weak and lethargic with bilateral weak legs but clinically no focal neuro deficit Lymphatic: no cervical or axillary lymphadenopathy Results & Data Results & Data ([facility]) Vital Signs (Past 12 Hours) Vital Signs Temp Pulse Pulse Pulse Resp BP BP 05/20/20 16:04 36.6 C 66 19 150/70 H 05/20/20 14:57 73 05/20/20 11:18 36.5 C 85 19 121/70 05/20/20 08:08 36.5 C 65 19 05/20/20 07:23 64 05/20/20 06:06 36.6 C 65 20 05/20/20 04:40 64 18 170/83 H BP Pulse Ox 05/20/20 16:04 100 05/20/20 14:57 05/20/20 11:18 100 05/20/20 08:08 147/83 H 99 05/20/20 07:23 05/20/20 06:06 162/89 H 100 05/20/20 04:40 99 Laboratory Results Short CBC 05/20/20 Range/Units 01:07 WBC 5.04 (4.8-10.8) K/uL Hgb 10.2 L (12.0-16.0) g/dL Hct 33.1 L (37-47) % Plt Count 73 L (130-400) K/uL BMP 05/20/20 01:07 Sodium 147 H Potassium 3.7 Chloride 114 H Carbon Dioxide 29 BUN 15 Creatinine 0.65 Glucose 134 H Calcium 7.9 L Cardiac Enzymes 05/20/20 Range/Units 01:07 Total Creatine Kinase 36 (26-192) U/L Troponin I 0.025 (0-0.045) ng/ml Urine 05/20/20 Range/Units 00:46 Urine Color Dark Yellow Urine Appearance Clear (Clear) Urine pH 5.0 (4.5-7.5) Ur Specific [place] 1.023 (1.000-1.030) Urine Protein Trace H (Negative) Urine Glucose (UA) Negative (Negative) Medications Administered Current Inpatient Medications Acetaminophen (Tylenol) 650 mg PO Q4H PRN PRN Reason: Pain or Fever Stop: 06/19/20 05:57 Albuterol (Ventolin 0.083% 2.5mg/3ml) 2.5 mg INH Q4 PRN PRN Reason: Wheezing Stop: 06/19/20 05:57 Albuterol (Ventolin Hfa) 2 puffs INH Q4 PRN PRN Reason: Shortness Of Breath Or Wheezing Stop: 06/19/20 05:57 Aspirin (Ecotrin Ectab) 81 mg PO DAILY SONAL Stop: 06/19/20 08:59 Last Admin: 05/20/20 08:58 Dose: 81 mg Documented by: Carvedilol (Coreg) 12.5 mg PO BIDM SONAL Stop: 06/19/20 07:59 Last Admin: 05/20/20 08:59 Dose: 12.5 mg Documented by: Citalopram Hydrobromide (Celexa) 20 mg PO DAILY SONAL Stop: 06/19/20 08:59 Last Admin: 05/20/20 08:58 Dose: 20 mg Documented by: Docusate Sodium (Colace) 100 mg PO BID SONAL Stop: 06/19/20 08:59 Last Admin: 05/20/20 08:59 Dose: 100 mg Documented by: Ferrous Gluconate (Ferrous Gluconate) 324 mg PO DAILY SONAL Stop: 06/19/20 08:59 Last Admin: 05/20/20 08:59 Dose: 324 mg Documented by: Fluticasone Propionate (Flonase) 1 sprays NA DAILY [facility] Stop: 06/19/20 08:59 Last Admin: 05/20/20 08:57 Dose: 1 sprays Documented by: Fluticasone/Vilanterol (Breo Ellipta 100/25 Mcg Inh) 1 puffs INH DAILY [facility] Stop: 06/19/20 08:59 Last Admin: 05/20/20 08:57 Dose: 1 puffs Documented by: Furosemide (Lasix) 40 mg PO BID17 [facility] Stop: 06/19/20 08:59 Last Admin: 05/20/20 08:59 Dose: 40 mg Documented by: Loratadine (Claritin) 10 mg PO DAILY [facility] Stop: 06/19/20 08:59 Last Admin: 05/20/20 08:59 Dose: 10 mg Documented by: Miscellaneous Information (Pharmacist Discharge Med Rec Consult) 1 ea N/A UD PRN PRN Reason: Consult Stop: 06/19/20 05:57 Multivitamins (Multivitamin Tab) 1 tab PO QAM SONAL Stop: 06/19/20 08:59 Last Admin: 05/20/20 08:59 Dose: 1 tab Documented by: Multivitamins/Minerals (Caltrate Plus) 1 tab PO BID [facility] Stop: 06/19/20 08:59 Last Admin: 05/20/20 08:58 Dose: 1 tab Documented by: Nitroglycerin (Nitrostat) 0.4 mg SL UD PRN PRN Reason: Chest Pain Stop: 06/19/20 05:57 Ondansetron HCl (Zofran) 4 mg IV Q6H PRN PRN Reason: Nausea Stop: 06/19/20 05:57 Pantoprazole Sodium (Protonix) 40 mg PO DAILY [facility] Stop: 06/19/20 08:59 Last Admin: 05/20/20 08:59 Dose: 40 mg Documented by: Polyethylene Glycol (Miralax Powder Packet) 17 gm PO DAILY [facility] Stop: 06/19/20 08:59 Last Admin: 05/20/20 08:58 Dose: Not Given Documented by: Raspberry (Raspberry) 5 ml PO Q6 [facility]ON[facility] Stop: 05/22/20 23:59 Last Admin: 05/20/20 11:06 Dose: 5 ml Documented by: Simethicone (Mylicon) 80 mg PO Q6 PRN PRN Reason: gas Stop: 06/19/20 05:57 Simvastatin (Zocor) 40 mg PO PM [facility]ONAL Stop: 06/19/20 20:59 Vancomycin HCl (Vancomycin Hcl) 500 mg PO Q6 [facility]ON[facility] Stop: 05/22/20 23:59 Last Admin: 05/20/20 11:06 Dose: 500 mg Documented by: (1) Altered mental status Altered mental status type: stupor Qualified Code(s): R40.1 - Stupor (2) Fall Encounter type: initial encounter Qualified Code(s): W19.XXXA - Unspecified fall, initial encounter
[2020-05-20] MEDS: SIMVASTATIN 40 MG TAB PO SCH (21:27)
[2020-05-21] MEDS: VANCOMYCIN HCL 500 MG/10 ML SOLN PO SCH ×5 (00:45→23:26)
[2020-05-21] MEDS: RASPBERRY SYRUP 5 ML UDP PO SCH ×5 (00:45→23:26)
[2020-05-21 07:12] LABS: BUN Creatinine Ratio 18.8 (10-20); Calcium 7.8 mg/dl (8.5-10.1); Est GFR (African American) 91.6; Potassium 3.8 mmol/L (3.5-5.1)
[2020-05-21] MEDS: FLUTICASONE PROPIONATE NA SPR 16 GM BTL SCH (08:55)
[2020-05-21] MEDS: CITALOPRAM 20 MG TAB PO SCH (08:56)
[2020-05-21] MEDS: FLUTICASONE/VILANTEROL 100/25MCG 14 PUFFS/INHALER INH SCH (08:56)
[2020-05-21] MEDS: PANTOprazole 40 MG TAB PO SCH (08:56)
[2020-05-21] MEDS: DOCUSATE SODIUM 100 MG CAP PO SCH ×2 (08:57→20:18)
[2020-05-21] MEDS: LORATADINE 10 MG TAB PO SCH (08:57)
[2020-05-21] MEDS: MULTIVITAMIN TAB PO SCH (08:57)
[2020-05-21] MEDS: FUROSEMIDE 40 MG TAB PO SCH ×2 (08:57→17:38)
[2020-05-21] MEDS: carvediloL 12.5 MG TAB PO SCH ×2 (08:57→17:37)
[2020-05-21] MEDS: FERROUS GLUCONATE 324 MG TAB PO SCH (08:57)
[2020-05-21] MEDS: POLYETHYLENE (MIRALAX) 17 GM PACK PO SCH (08:57)
[2020-05-21] MEDS: ASPIRIN 81 MG ECTAB PO SCH (08:57)
[2020-05-21] MEDS: CALCIUM 600MG + VIT D 400 IU TAB PO SCH ×2 (08:58→20:18)
--- NOTE | 2020-05-21 09:22 | CT Scan Report ---
CT head/brain wo con CLINICAL HISTORY: Right middle cerebral artery stroke COMPARISON STUDY: 05/20/2020 TECHNIQUE: Axial CT of the brain is performed from the vertex to the skull base. IV contrast was not administered for this examination. A dose lowering technique was utilized adhering to the principles of ALARA. CT DOSE: 537.48 mGy.cm FINDINGS: There is a persistent right temporal lobe hypodensity, likely secondary to an infarct. Correlation wi th clinical symptoms is recommended. Follow-up will be necessary to document is normal expected evolu tionary changes, and exclude an underlying mass. There is no midline shift. There is no acute hemorrh age. No calvarial fractures are visualized. There are moderately extensive white matter hypodensities likely on a small vessel basis. There is an old left basal ganglia infarct. There is no evidence of pathologic ventricular dilatation. There is no evidence of acute sinusitis IMPRESSION: 1. No significant change from the preceding study 2. No evidence of acute hemorrhage 3. Persistent right temporal lobe hypodensity, likely secondary to a subacute infarct 4. Moderate white matter disease and old left basal ganglia infarct ACT 112: Negative or not required by law. Electronically signed by: Angelito Palacios M.D. 05/21/2020 9:21 AM
[2020-05-21 15:30] LABS: Hematocrit (blood only) 32.2 % (37-47); Hemoglobin 10.2 g/dL (12.0-16.0); Mean Corpuscular Hemoglobin 35.1 pg (25-34); Mean Corpuscular Hgb Conc 31.7 g/dL (32-36); Mean Corpuscular Volume 110.7 fL (80-100); Nucleated RBC # (auto) 0.03 K/uL (0-0); Nucleated RBC % (auto) 0.7 %; RDW Coefficient of Variation 17.3 % (11.5-14.5); RDW Standard Deviation 69.5 fL (36.4-46.3); Red Blood Count 2.91 M/uL (4.2-5.4); White Blood Count 4.78 K/uL (4.8-10.8)
[2020-05-21 16:44] LABS: Mean Platelet Volume 11.9 fL (7.4-10.4); Platelet Count 49 K/uL (130-400)
[2020-05-21 16:52] LABS: ALC (manual) 0.37 K/uL (1.2-3.4); ANC (manual) 3.78 K/uL (1.4-6.5); Basophils # (manual) 0.04 K/uL (0-0.2); Basophils % (manual) 0.9 %; Eosinophils # (manual) 0.04 K/uL (0-0.5); Eosinophils % (manual) 0.9 %; Lymphocytes # (manual) 0.37 K/uL (1.2-3.4); Lymphocytes % (manual) 7.8 %; Macrocytosis Present; Metamyelocytes # (manual) 0.17 K/uL (0-0); Metamyelocytes % (manual) 3.5 %; Monocytes # (manual) 0.29 K/uL (0.11-0.59); Monocytes % (manual) 6.1 %; Myelocytes # (manual) 0.08 K/uL (0-0); Myelocytes % (manual) 1.7 %; Neutrophils # (manual) 3.78 K/uL (1.4-6.5); Neutrophils % (manual) 79.1 %; Polychromasia 1+; Toxic Granulation 1+
[2020-05-21] MEDS: SIMVASTATIN 40 MG TAB PO SCH (20:18)
[2020-05-22] MEDS: VANCOMYCIN HCL 500 MG/10 ML SOLN PO SCH ×3 (05:27→17:58)
[2020-05-22] MEDS: RASPBERRY SYRUP 5 ML UDP PO SCH ×3 (05:27→18:01)
[2020-05-22 06:24] LABS: Estimated Average Glucose 140 mg/dl; Hemoglobin A1C 6.5 % (4.5-5.6)
[2020-05-22 08:47] LABS: Hematocrit (blood only) 30.9 % (37-47); Hemoglobin 9.8 g/dL (12.0-16.0); Mean Corpuscular Hemoglobin 35.3 pg (25-34); Mean Corpuscular Hgb Conc 31.7 g/dL (32-36); Mean Corpuscular Volume 111.2 fL (80-100); RDW Coefficient of Variation 17.3 % (11.5-14.5); RDW Standard Deviation 71.1 fL (36.4-46.3); Red Blood Count 2.78 M/uL (4.2-5.4); White Blood Count 5.59 K/uL (4.8-10.8)
[2020-05-22 08:50] LABS: Mean Platelet Volume 11.3 fL (7.4-10.4); Platelet Count 67 K/uL (130-400)
[2020-05-22 09:21] LABS: BUN Creatinine Ratio 17.3 (10-20); Calcium 8.2 mg/dl (8.5-10.1); Creatinine Clr Calc Pharmacy 64.6 ml/min; Est GFR (African American) 93.5; Est GFR (Non-African American) 80.6; Potassium 3.8 mmol/L (3.5-5.1)
--- NOTE | 2020-05-22 09:26 | Progress Notes ---
DATE: 05/21/2020 SUBJECTIVE: The patient was seen and examined this morning. Family was at bedside. The patient was asleep upon entering the room. She did arouse to light sternal rub as well as voice. She reports feeling numb all over and does not report feeling well. She denies any new symptoms. She is otherwise following simple commands. She is certainly disoriented this morning to location. There were no acute events noted overnight. She did have a repeat CT head noncontrast this morning. OBJECTIVE: VITAL SIGNS: Blood pressure 128/78, pulse is 77, respiratory rate is 18, her temperature is 36.4. GENERAL: The patient is sleeping in the bed, although lethargic upon arousal. She appears in no distress. She does appear chronically ill and morbidly obese. NEUROLOGIC: Her right eye is exotropic. She does blink to threat. Pupils are symmetric. Her speech is soft and mildly dysarthric. She is following simple commands such as hold both her arms up and answering simple questions such as how old are you. Her face does appear symmetric at rest. Her tongue is midline and appears dry. There is no cough or wheezing noted. Her pulses felt normal at the wrist. She has significant upper and lower extremity weakness which appears diffuse and has difficulty holding her arms to gravity or her legs to gravity. She is moving both of her ankles and has some mild movement with ankle dorsiflexion 3/5. There is significant edema in both lower extremities. Sensation is intact to light touch in both legs. Reflexes are difficult to obtain. Toes are downgoing. There is no tremor or myoclonic jerks. She is unable to perform [id number] testing due to weakness. The patient is unable to ambulate. DIAGNOSTIC TESTING: CT head noncontrast performed this morning at 7:41 a.m. showed no significant change from proceeding study. There was no evidence of acute hemorrhage. There was a right temporal lobe hypodensity likely secondary to a subacute infarct. Moderate white matter disease and old left basal ganglia infarct. 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 Carotid ultrasound showed no high-grade stenosis of the right carotid artery. CT findings are concerning for a possible embolic stroke. 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 Agree with continuing daily aspirin. Agree with continuing current simvastatin. In regards to her speech and swallowing, we will defer to speech therapy for further recommendations. In regards to the critical illness neuropathy and myopathy agree with continuing physical therapy. Otherwise, Neurology will sign off for now. Please contact me with any further questions or concerns.
--- NOTE | 2020-05-22 09:27 | Consultation Report ---
DATE OF CONSULTATION: 05/20/2020 Consult was requested by Dr. Kilgore. CHIEF COMPLAINT: Dysarthria and generalized weakness. HISTORY OF PRESENT ILLNESS: This is an 89-year-old woman with multiple medical comorbidities including non-insulin dependent type 2 diabetes, currently not on medications, chronic kidney disease stage III, COPD, history of complete heart block status post pacemaker, diastolic congestive heart failure, and prior history of a CVA on aspirin, admitted to the hospital yesterday for a fall and generalized weakness. She was also noted by her daughter to have dysarthria and a change in speech. She was recently extensively evaluated and admitted to [facility] in [place], [place] for a pneumonia and C. diff colitis. Of note, she also has a history of metastatic breast cancer and is currently being treated with chemotherapy. As a result of this chemotherapy she does have thrombocytopenia as well as pancytopenia. She is currently residing at [facility] for rehabilitation. She reportedly per son attempted to get out of bed and sustained a fall. She was then brought to the hospital for further evaluation. The patient is a poor historian, so history was obtained from the son and daughter at bedside. They reported earlier this week she had an acute change in her speech quality, which occurred on Friday. Since her speech has not returned to normal they also noticed that her mouth was tending towards being open, which is new. She otherwise has been weak and unable to essentially walk and has been bedbound. Per the son, she was admitted to the hospital for over 3 weeks as she was treated for an infectious colitis. She also had significant ascites and was diuresed aggressively and treated for spontaneous bacterial peritonitis. A CT head noncontrast was performed in the ER which showed a lucency in the right temporal lobe concerning for a subacute or chronic ischemic infarct. Neurology was consulted for further evaluation. PAST MEDICAL HISTORY: Non-insulin dependent diabetes, chronic kidney disease, previous cerebrovascular accident, congestive heart failure, morbid obesity, C. diff colitis, COPD, hyperlipidemia, metastatic breast cancer. PAST SURGICAL HISTORY: Right breast lumpectomy, colonoscopy, pacemaker placement, left parietal mastectomy, right parietal mastectomy, appendectomy, removal of cataracts, total hip arthroplasty. MEDICATIONS: Coreg 12.5 mg twice a day, Lasix 40 mg twice a day, Celexa 20 mg daily, Protonix 40 mg daily, simvastatin 40 mg daily, Tylenol as needed, aspirin 81 mg daily. FAMILY HISTORY: Her daughter has breast cancer. Brother had lung cancer. Father had cancer also. Sister has breast cancer. Brother has diabetes. Sister has diabetes. SOCIAL HISTORY: The patient is currently . She lives with her daughter. Former smoker, quit in the . She smoked 1 pack per day for 2 years. No alcohol or drug use. REVIEW OF SYSTEMS: Currently limited due to current encephalopathy as patient is in an altered mental state. PHYSICAL EXAMINATION: VITAL SIGNS: Blood pressure is 121/70, her pulse is 85, her respiratory rate is 19. Her temperature is 36.5. Her O2 sats are 100% on room air. CONSTITUTIONAL: The patient appears chronically ill, in no distress. She is morbidly obese. HEENT: Atraumatic. Her eyes showed normal conjunctivae. NECK: Supple. RESPIRATORY: Appears to have normal effort on room air. CARDIOVASCULAR: Pulses are intact and appear normal. ABDOMEN: Distended. SKIN: Shows no rashes. PSYCHIATRIC: Flat affect. NEUROLOGIC: Appears in no distress. She is lethargic, not alert, oriented to person. Attention is decreased. Her knowledge is poor. In regards to her language, she appears to be following some simple commands, although grossly hard of hearing. Her speech is nonfluent with mild to moderate dysarthria. Cranial nerve duvall, cranial nerve II she blinks to threat. Her pupils are symmetric. Extraocular muscles are intact, except she has a right eye exotropia, which is chronic. Facial sensation is intact. Her face appears symmetric at rest. Her hearing is grossly intact when speaking loudly. Her palate appears symmetric. She is holding her head up and able to shrug her shoulders. Her tongue is in the midline. Gait, patient is unable to ambulate and is currently bedbound. Coordination, she has no myoclonic jerks or tremor. She is unable to perform [id number] testing due to weakness. Sensation is intact to light touch in the lower extremities. Her muscle tone is reduced. Muscle exam, she is diffusely weak throughout and antigravity in the arms as well as antigravity in the legs. Ankle dorsiflexion is weak in both lower extremities. Reflexes are attenuated throughout. Toes are downgoing. DIAGNOSTIC TESTING AND LABORATORY DATA: WBC was 5.04, hemoglobin 10.2, platelet count was 73. INR is 1.2. Sodium is 147, potassium 3.7, chloride 114, BUN 15, creatinine 0.65, glucose was 134, calcium was 7.9. Total creatinine kinase was 36. Urinalysis showed trace protein, otherwise was clear dark yellow, negative for ketones, nitrites and trace leukocyte esterase. There was greater than 30 epithelial cells. Bacteria was negative. Nasal MRSA screen was negative. Carotid ultrasound of the carotid arteries showed no sonographic evidence of hemodynamically significant stenosis in the right carotid artery. There was 50-69% stenosis of the proximal left internal carotid artery. Chest x-ray, slight prominence of the right basilar markings statistically atelectatic. Head CT noncontrast. There is a loss of adams-white differentiation identified in the right temporal lobe concerning for subacute ischemia. There is no hemorrhage or mass effect. Adams-white matter differentiation otherwise maintained. ASSESSMENT AND PLAN: An 89-year-old woman with multiple medical comorbidities admitted for generalized weakness and dysarthria. Neurology consulted for further evaluation given her recent CT head finding showing a possible subacute embolic appearing right middle cerebral artery ischemic stroke. Carotid ultrasounds showed no high-grade stenosis in the right carotid artery. 1. Generalized weakness -- likely multifactorial, but probable component of critical illness myopathy or neuropathy given her recent extensive hospital admissions with multiple infections. This often improves with time. Would avoid medications such as glucocorticoids if possible. CK level was 36, which would suggest against an inflammatory myopathy. Agree with speech therapy. Agree with continued physical therapy and rehabilitation. I did discuss EMG, although I think this would be limited due to body habitus as well as lower extremity edema. 2. Dysarthria, possibly related to critical illness myopathy versus neuropathy versus secondary to recent right middle cerebral artery embolic appearing stroke on CT head, noncontrast. However, on review of the CT, there is only an axial image showing a possible lucency in the right temporal lobe, although this may be artifact. Would recommend repeat CT head with and without contrast as the patient is not able to have MRI brain due to pacemaker. Otherwise, given her thrombocytopenia agree with continuing aspirin for now.
[2020-05-22 09:51] LABS: ANC (manual) 3.55 K/uL (1.4-6.5); Basophilic Stippling 1+; Lymphocytes % (manual) 30.4 %; Macrocytosis Present; Metamyelocytes # (manual) 0.05 K/uL (0-0); Metamyelocytes % (manual) 0.9 %; Monocytes # (manual) 0.05 K/uL (0.11-0.59); Monocytes % (manual) 0.9 %; Myelocytes # (manual) 0.24 K/uL (0-0); Myelocytes % (manual) 4.3 %; Neutrophils # (manual) 3.55 K/uL (1.4-6.5); Neutrophils % (manual) 63.5 %; Stomatocytes 1+
[2020-05-22] MEDS: FERROUS GLUCONATE 324 MG TAB PO SCH (10:46)
[2020-05-22] MEDS: LORATADINE 10 MG TAB PO SCH (10:46)
[2020-05-22] MEDS: FLUTICASONE PROPIONATE NA SPR 16 GM BTL SCH (10:46)
[2020-05-22] MEDS: FUROSEMIDE 40 MG TAB PO SCH ×2 (10:46→16:07)
[2020-05-22] MEDS: POLYETHYLENE (MIRALAX) 17 GM PACK PO SCH (10:46)
[2020-05-22] MEDS: CALCIUM 600MG + VIT D 400 IU TAB PO SCH ×2 (10:46→21:25)
[2020-05-22] MEDS: FLUTICASONE/VILANTEROL 100/25MCG 14 PUFFS/INHALER INH SCH (10:46)
[2020-05-22] MEDS: CITALOPRAM 20 MG TAB PO SCH (10:46)
[2020-05-22] MEDS: ASPIRIN 81 MG ECTAB PO SCH ×2 (10:46→16:07)
[2020-05-22] MEDS: DOCUSATE SODIUM 100 MG CAP PO SCH ×2 (10:46→21:25)
[2020-05-22] MEDS: carvediloL 12.5 MG TAB PO SCH ×2 (10:47→16:08)
[2020-05-22] MEDS: MULTIVITAMIN TAB PO SCH (10:47)
[2020-05-22] MEDS: PANTOprazole 40 MG TAB PO SCH (10:47)
--- NOTE | 2020-05-22 14:10 | Hospitalist Progress Note ---
Date of Service May 22, 2020 Assessment & Plan (1) Fall: 89-year-old with multiple complicated past medical history as mentioned in H&P was admitted from [facility] with a history of unwitnessed fall She has been very weak generally and has not been ambulant for the last month or so She was discharged from on last and has been in [facility] since that time She was found on the ground beside her bed curled up without any incontinence or significant injury Skeletal survey and CAT scan remain unremarkable She will get PT and OT evaluation before discharge from the hospital 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 Does not have any focal localizing signs but remains generally weak and lethargic We will give aspirin and no Plavix due to thrombocytopenia (2) Generalized weakness: She has been generally weak and almost bedbound for the last few months In and out from [facility] and discharged to [facility] on last And weakness seems to be multifactorial-deconditioning from recent recurrent hospitalization and infections, metastatic breast cancer on recent chemo, doubt a stroke and/or infection are causing this problem Again she will need to have PT and OT evaluation Discussed with daughter in length She has this kind of episode at times when she does not communicate, does not move and does not eat Immediately after the episode she becomes alert and awake and start talking and eating She has had 1 of this episode this morning-remains hemodynamically stable We will ask for palliative care consult for further direction of management History of CVA Was on aspirin and Plavix with Plavix is off due to thrombocytopenia Echo and carotid ultrasound remain unremarkable Repeat CT of the head did show right temporal hypodensity which is suggestive of infarction Discussed with Dr. London Only aspirin will be continued and Plavix will be discontinued due to thrombocytopenia and to decrease the risk of bleeding Speech therapy evaluation Will have a barium swallow study tomorrow to document any aspiration while eating She has been eating and drinking reasonably Strongly advised to drink more fluid Video swallow could not be done due to mental status and extreme drowsiness and weakness (3) Altered mental status: Noted to have more confusion as of yesterday Concern looking better since this morning Has been eating reasonably and drinking reasonably Remains pleasantly confused (4) CKD (chronic kidney disease), stage III: Has chronic kidney disease with normal electrolytes (5) Complete heart block: Status post pacemaker placement No acute cardiac issue (6) COPD (chronic obstructive pulmonary disease): No acute exacerbation (7) Diastolic CHF: Has bilateral leg edema seems to be chronic Chest x-ray did not show any fluid overload and of CHF Echo of the heart-atrial fibrillation with ventricular pacing rhythm, severe concentric left ventricular hypertrophy with normal wall motion and EF of 65 to 70%, aortic valve sclerosis without significant stenosis, mild aortic regurgitation (8) C. difficile colitis: History of C. 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 History of pancytopenia and thrombocytopenia Likely secondary to chemo induced and could be due to infiltration of bone marrow from breast cancer We will monitor DVT prophylaxis SCDs CODE STATUS DNR/DNI Discussed in detail with the daughter Admission and Anticipated Discharge Date Admission Date: May 20, 2020 Subjective The patient was seen and examined in the telemetry unit in presence of the daughter She was admitted from [facility] following an unwitnessed fall without any significant noticeable injury She has been more lucent and communicating almost normally She complains to have weak legs and has not been able to elevate dose with ongoing back pain status post fall 05/21/2020 The patient was seen and examined in presence of the daughter She remains extremely weak and lethargic but does not have any focal neuro deficit on examination She has been conversing reasonably and has been eating and drinking reasonably She will be getting more physical therapy before being discharged 05/22/2020 The patient was seen and examined in medical telemetry unit She has been very lethargic since this morning and has not been talking, eating or drinking anything Later on she responded to my comments and talked to me and mentioned that she is extremely weak and lethargic and does not want to move Review of Systems Review of Systems: All systems reviewed and are unremarkable except as noted below Constitutional: + malaise, + weakness and + anorexia Musculoskeletal: + back pain (Without radiation to the legs) Physical Exam Physical Exam: Lying in bed comfortably Constitutional: + ill appearing, + obese and + lethargic; no acute distress Eyes: PERRL, conjunctivae normal, anicteric sclerae ENMT: external ear and nose normal, oropharynx normal Neck: trachea midline, no thyromegaly Respiratory: normal respiratory effort; no respiratory distress Auscultation: + crackles (Minimal crackles at the bases) Cardiovascular: Rate/Rhythm: regular rate and regular rhythm Heart Sounds: no murmur Extremities: + edema (Bilateral leg edema seems to be improving) Gastrointestinal (Abdomen): Inspection/Auscultation: abdomen normal to inspection; abdomen not distended Percussion/Palpation: abdomen soft; abdomen nontender Neurologic: moves all extremities Lymphatic: no cervical or axillary lymphadenopathy Results & Data Results & Data ([facility]) Vital Signs (Past 12 Hours) Vital Signs Temp Pulse Pulse Pulse Resp BP Pulse Ox 05/22/20 11:15 36.3 C L 65 18 138/76 100 05/22/20 07:32 74 05/22/20 07:23 36.3 C L 62 18 160/73 H 100 05/22/20 05:00 05/22/20 03:00 36.4 C L 78 17 144/80 H 100 Pulse Ox 05/22/20 11:15 05/22/20 07:32 05/22/20 07:23 05/22/20 05:00 99 05/22/20 03:00 Laboratory Results Short CBC 05/22/20 Range/Units 08:23 WBC 5.59 (4.8-10.8) K/uL Hgb 9.8 L (12.0-16.0) g/dL Hct 30.9 L (37-47) % Plt Count 67 L (130-400) K/uL BMP 05/22/20 08:23 Sodium 146 H Potassium 3.8 Chloride 111 H Carbon Dioxide 33 H BUN 11 Creatinine 0.63 Glucose 108 H Calcium 8.2 L Medications Administered Current Inpatient Medications Acetaminophen (Tylenol) 650 mg PO Q4H PRN PRN Reason: Pain or Fever Stop: 06/19/20 05:57 Albuterol (Ventolin 0.083% 2.5mg/3ml) 2.5 mg INH Q4 PRN PRN Reason: Wheezing Stop: 06/19/20 05:57 Albuterol (Ventolin Hfa) 2 puffs INH Q4 PRN PRN Reason: Shortness Of Breath Or Wheezing Stop: 06/19/20 05:57 Aspirin (Ecotrin Ectab) 81 mg PO DAILY SONAL Stop: 06/19/20 08:59 Last Admin: 05/22/20 16:07 Dose: 81 mg Documented by: Carvedilol (Coreg) 12.5 mg PO BIDM [facility] Stop: 06/19/20 07:59 Last Admin: 05/22/20 16:08 Dose: 12.5 mg Documented by: Citalopram Hydrobromide (Celexa) 20 mg PO DAILY [facility] Stop: 06/19/20 08:59 Last Admin: 05/22/20 10:46 Dose: Not Given Documented by: Docusate Sodium (Colace) 100 mg PO BID [facility] Stop: 06/19/20 08:59 Last Admin: 05/22/20 10:46 Dose: Not Given Documented by: Ferrous Gluconate (Ferrous Gluconate) 324 mg PO DAILY [facility] Stop: 06/19/20 08:59 Last Admin: 05/22/20 10:46 Dose: Not Given Documented by: Fluticasone Propionate (Flonase) 1 sprays NA DAILY [facility] Stop: 06/19/20 08:59 Last Admin: 05/22/20 10:46 Dose: Not Given Documented by: Fluticasone/Vilanterol (Breo Ellipta 100/25 Mcg Inh) 1 puffs INH DAILY [facility] Stop: 06/19/20 08:59 Last Admin: 05/22/20 10:46 Dose: Not Given Documented by: Furosemide (Lasix) 40 mg PO BID17 [facility] Stop: 06/19/20 08:59 Last Admin: 05/22/20 16:07 Dose: 40 mg Documented by: Loratadine (Claritin) 10 mg PO DAILY [facility] Stop: 06/19/20 08:59 Last Admin: 05/22/20 10:46 Dose: Not Given Documented by: Metoprolol Tartrate (Lopressor) 2.5 mg IV Q6 PRN PRN Reason: Tachycardia Stop: 06/21/20 17:59 Miscellaneous Information (Pharmacist Discharge Med Rec Consult) 1 ea N/A UD PRN PRN Reason: Consult Stop: 06/19/20 05:57 Multivitamins (Multivitamin Tab) 1 tab PO QAM [facility] Stop: 06/19/20 08:59 Last Admin: 05/22/20 10:47 Dose: Not Given Documented by: Multivitamins/Minerals (Caltrate Plus) 1 tab PO BID [facility] Stop: 06/19/20 08:59 Last Admin: 05/22/20 10:46 Dose: Not Given Documented by: Nitroglycerin (Nitrostat) 0.4 mg SL UD PRN PRN Reason: Chest Pain Stop: 06/19/20 05:57 Ondansetron HCl (Zofran) 4 mg IV Q6H PRN PRN Reason: Nausea Stop: 06/19/20 05:57 Pantoprazole Sodium (Protonix) 40 mg PO DAILY SONAL Stop: 06/19/20 08:59 Last Admin: 05/22/20 10:47 Dose: Not Given Documented by: Polyethylene Glycol (Miralax Powder Packet) 17 gm PO DAILY SONAL Stop: 06/19/20 08:59 Last Admin: 05/22/20 10:46 Dose: Not Given Documented by: Raspberry (Raspberry) 5 ml PO Q6 SONAL Stop: 05/22/20 23:59 Last Admin: 05/22/20 12:48 Dose: Not Given Documented by: Simethicone (Mylicon) 80 mg PO Q6 PRN PRN Reason: gas Stop: 06/19/20 05:57 Simvastatin (Zocor) 40 mg PO PM SONAL Stop: 06/19/20 20:59 Last Admin: 05/21/20 20:18 Dose: 40 mg Documented by: Vancomycin HCl (Vancomycin Hcl) 500 mg PO Q6 SONAL Stop: 05/22/20 23:59 Last Admin: 05/22/20 12:48 Dose: Not Given Documented by: (1) Altered mental status Altered mental status type: stupor Qualified Code(s): R40.1 - Stupor (2) Fall Encounter type: initial encounter Qualified Code(s): W19.XXXA - Unspecified fall, initial encounter
[2020-05-22] MEDS ORDERED: METOPROLOL TARTRATE 1 MG/ML VIAL IV PRN (16:16)
--- NOTE | 2020-05-22 17:28 | Electrocardiogram Report ---
Test Reason : Blood Pressure : / mmHG Vent. Rate : 136 BPM Atrial Rate : 000 BPM P-R Int : 000 ms QRS Dur : 104 ms QT Int : 344 ms P-R-T Axes : 000 -44 164 degrees QTc Int : 517 ms Atrial fibrillation with rapid ventricular response Left axis deviation Abnormal ECG When compared with ECG of 20-MAY-2020 00:37, Atrial fibrillation has replaced Electronic ventricular pacemaker Vent. rate has increased BY 64 BPM Confirmed by Milo Dietrich ([id number]) on 05/22/2020 5:28:46 PM Referred By: Jim ashraf [facility] Confirmed By:Aubrey Dietrich
[2020-05-22] MEDS: SIMVASTATIN 40 MG TAB PO SCH (21:28)
[2020-05-23] MEDS: FUROSEMIDE 40 MG TAB PO SCH ×2 (07:57→17:31)
[2020-05-23] MEDS: ASPIRIN 81 MG ECTAB PO SCH (07:58)
[2020-05-23] MEDS: FLUTICASONE/VILANTEROL 100/25MCG 14 PUFFS/INHALER INH SCH (07:58)
[2020-05-23] MEDS: carvediloL 12.5 MG TAB PO SCH ×2 (07:58→17:31)
[2020-05-23] MEDS: DOCUSATE SODIUM 100 MG CAP PO SCH ×2 (07:58→21:34)
[2020-05-23] MEDS: FLUTICASONE PROPIONATE NA SPR 16 GM BTL SCH (07:59)
[2020-05-23] MEDS: POLYETHYLENE (MIRALAX) 17 GM PACK PO SCH (07:59)
[2020-05-23] MEDS: CITALOPRAM 20 MG TAB PO SCH (07:59)
[2020-05-23] MEDS: PANTOprazole 40 MG TAB PO SCH (08:00)
[2020-05-23 08:51] LABS: Hematocrit (blood only) 30.2 % (37-47); Hemoglobin 9.5 g/dL (12.0-16.0); Mean Corpuscular Hemoglobin 34.8 pg (25-34); Mean Corpuscular Hgb Conc 31.5 g/dL (32-36); Mean Corpuscular Volume 110.6 fL (80-100); RDW Coefficient of Variation 17.4 % (11.5-14.5); RDW Standard Deviation 70.8 fL (36.4-46.3); Red Blood Count 2.73 M/uL (4.2-5.4); White Blood Count 7.57 K/uL (4.8-10.8)
[2020-05-23] MEDS: CALCIUM 600MG + VIT D 400 IU TAB PO SCH ×2 (09:18→21:34)
[2020-05-23] MEDS: LORATADINE 10 MG TAB PO SCH (09:19)
[2020-05-23] MEDS: FERROUS GLUCONATE 324 MG TAB PO SCH (09:19)
[2020-05-23] MEDS: MULTIVITAMIN TAB PO SCH (09:23)
[2020-05-23 09:27] LABS: Platelet Count 71 K/uL (130-400)
[2020-05-23 09:31] LABS: BUN Creatinine Ratio 21.3 (10-20); Calcium 8.3 mg/dl (8.5-10.1); Creatinine Clr Calc Pharmacy 58.5 ml/min; Est GFR (African American) 90.7; Est GFR (Non-African American) 78.3; Potassium 3.8 mmol/L (3.5-5.1)
[2020-05-23 10:13] LABS: ALC (manual) 1.92 K/uL (1.2-3.4); ANC (manual) 4.45 K/uL (1.4-6.5); Anisocytosis Present; Basophilic Stippling 1+; Eosinophils # (manual) 0.07 K/uL (0-0.5); Eosinophils % (manual) 0.9 %; Hypochromasia Present; Lymphocytes # (manual) 1.92 K/uL (1.2-3.4); Lymphocytes % (manual) 25.4 %; Macrocytosis Present; Metamyelocytes # (manual) 0.26 K/uL (0-0); Metamyelocytes % (manual) 3.5 %; Monocytes % (manual) 2.6 %; Myelocytes # (manual) 0.67 K/uL (0-0); Myelocytes % (manual) 8.8 %; Neutrophils # (manual) 4.45 K/uL (1.4-6.5); Neutrophils % (manual) 58.8 %
--- NOTE | 2020-05-23 16:34 | Hospitalist Progress Note ---
Date of Service May 23, 2020 Assessment & Plan (1) Fall: 89-year-old with multiple complicated past medical history as mentioned in H&P was admitted from [facility] with a history of unwitnessed fall She has been very weak generally and has not been ambulant for the last month or so She was discharged from [facility] on last and has been in 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 Does not have any focal localizing signs but remains generally weak and lethargic We will give aspirin and no Plavix due to thrombocytopenia (2) Generalized weakness: She has been generally weak and almost bedbound for the last few months In and out from [facility] and discharged to [facility] on last And weakness seems to be multifactorial-deconditioning from recent recurrent hospitalization and infections, metastatic breast cancer on recent chemo, doubt a stroke and/or infection are causing this problem Again she will need to have PT and OT evaluation Discussed with daughter in length She has this kind of episode at times when she does not communicate, does not move and does not eat Immediately after the episode she becomes alert and awake and start talking and eating She has had 1 of this episode this morning-remains hemodynamically stable We will ask for palliative care consult for further direction of management Appreciate palliative care input and recommendation History of CVA Was on aspirin and Plavix with Plavix is off due to thrombocytopenia Echo and carotid ultrasound remain unremarkable Repeat CT of the head did show right temporal hypodensity which is suggestive of infarction Discussed with Dr. London Only aspirin will be continued and Plavix will be discontinued due to thrombocytopenia and to decrease the risk of bleeding Speech therapy evaluation Will have a barium swallow study tomorrow to document any aspiration while eating She has been eating and drinking reasonably Strongly advised to drink more fluid Video swallow could not be done due to mental status and extreme drowsiness and weakness Patient will not be able to do any video swallow at this time (3) Altered mental status: Noted to have more confusion as of yesterday Concern looking better since this morning Has been eating reasonably and drinking reasonably Remains pleasantly confused (4) CKD (chronic kidney disease), stage III: Has chronic kidney disease with normal electrolytes (5) Complete heart block: Status post pacemaker placement No acute cardiac issue (6) COPD (chronic obstructive pulmonary disease): No acute exacerbation (7) Diastolic CHF: Has bilateral leg edema seems to be chronic Chest x-ray did not show any fluid overload and of CHF Echo of the heart-atrial fibrillation with ventricular pacing rhythm, severe concentric left ventricular hypertrophy with normal wall motion and EF of 65 to 70%, aortic valve sclerosis without significant stenosis, mild aortic regurgitation Has edema with possible mild CHF-wound check with chest x-ray Will try very small dose of Lasix (8) C. difficile colitis: History of C. 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 History of pancytopenia and thrombocytopenia Likely secondary to chemo induced and could be due to infiltration of bone marrow from breast cancer We will monitor DVT prophylaxis SCDs CODE STATUS DNR/DNI Discussed in detail with the daughter Admission and Anticipated Discharge Date Admission Date: May 20, 2020 Subjective The patient was seen and examined in the telemetry unit in presence of the daughter She was [facility] following an unwitnessed fall without any significant noticeable injury She has been more lucent and communicating almost normally She complains to have weak legs and has not been able to elevate dose with ongoing back pain status post fall 05/21/2020 The patient was seen and examined in presence of the daughter She remains extremely weak and lethargic but does not have any focal neuro deficit on examination She has been conversing reasonably and has been eating and drinking reasonably She will be getting more physical therapy before being discharged 05/22/2020 The patient was seen and examined in medical telemetry unit She has been very lethargic since this morning and has not been talking, eating or drinking anything Later on she responded to my comments and talked to me and mentioned that she is extremely weak and lethargic and does not want to move 05/23/2020 The patient was seen and examined in medical telemetry unit She remains extremely weak and lethargic but was able to talk to me and follow a few commands Review of Systems Constitutional: + malaise, + weakness and + anorexia Musculoskeletal: + back pain (Without radiation to the legs) Neurologic: Pleasantly confused confused. Physical Exam Physical Exam: Lying in bed comfortably but remains very very drowsy and fatigued Constitutional: + ill appearing, + obese and + lethargic; no acute distress Eyes: PERRL, conjunctivae normal, anicteric sclerae ENMT: external ear and nose normal, oropharynx normal Neck: trachea midline, no thyromegaly Respiratory: normal respiratory effort; no respiratory distress Auscultation: + crackles (Minimal crackles at the bases) Cardiovascular: Rate/Rhythm: + abnormal rate and + abnormal rhythm Heart Sounds: no murmur Extremities: + edema (Bilateral leg edema seems to be improving) Gastrointestinal (Abdomen): Inspection/Auscultation: abdomen normal to inspection; abdomen not distended Percussion/Palpation: abdomen soft; abdomen nontender Musculoskeletal: No acute arthritis involving any joints Neurologic: Extremely weak and lethargic Lymphatic: no cervical or axillary lymphadenopathy Results & Data Results & Data ([facility]) Vital Signs (Past 12 Hours) Vital Signs Temp Pulse Resp BP Pulse Ox 05/23/20 15:06 36.3 C L 63 18 147/66 H 100 05/23/20 11:00 36.7 C 79 20 135/77 100 05/23/20 07:00 36.6 C 95 H 20 152/76 H 92 05/23/20 04:51 36.6 C 74 20 149/78 H 99 Laboratory Results Short CBC 05/23/20 Range/Units 08:32 WBC 7.57 (4.8-10.8) K/uL Hgb 9.5 L (12.0-16.0) g/dL Hct 30.2 L (37-47) % Plt Count 71 L (130-400) K/uL [facility] 05/23/20 08:32 Sodium 147 H Potassium 3.8 Chloride 111 H Carbon Dioxide 31 BUN 15 Creatinine 0.69 Glucose 136 H Calcium 8.3 L Medications Administered Current Inpatient Medications Acetaminophen (Tylenol) 650 mg PO Q4H PRN PRN Reason: Pain or Fever Stop: 06/19/20 05:57 Albuterol (Ventolin 0.083% 2.5mg/3ml) 2.5 mg INH Q4 PRN PRN Reason: Wheezing Stop: 06/19/20 05:57 Albuterol (Ventolin Hfa) 2 puffs INH Q4 PRN PRN Reason: Shortness Of Breath Or Wheezing Stop: 06/19/20 05:57 Aspirin (Ecotrin Ectab) 81 mg PO DAILY [facility] Stop: 06/19/20 08:59 Last Admin: 05/23/20 07:58 Dose: 81 mg Documented by: Carvedilol (Coreg) 12.5 mg PO BIDM [facility] Stop: 06/19/20 07:59 Last Admin: 05/23/20 07:58 Dose: 12.5 mg Documented by: Citalopram Hydrobromide (Celexa) 20 mg PO DAILY [facility] Stop: 06/19/20 08:59 Last Admin: 05/23/20 07:59 Dose: 20 mg Documented by: Docusate Sodium (Colace) 100 mg PO BID [facility] Stop: 06/19/20 08:59 Last Admin: 05/23/20 07:58 Dose: Not Given Documented by: Ferrous Gluconate (Ferrous Gluconate) 324 mg PO DAILY [facility] Stop: 06/19/20 08:59 Last Admin: 05/23/20 09:19 Dose: Not Given Documented by: Fluticasone Propionate (Flonase) 1 sprays NA DAILY [facility] Stop: 06/19/20 08:59 Last Admin: 05/23/20 07:59 Dose: 1 sprays Documented by: Fluticasone/Vilanterol (Breo Ellipta 100/25 Mcg Inh) 1 puffs INH DAILY [facility] Stop: 06/19/20 08:59 Last Admin: 05/23/20 07:58 Dose: 1 puffs Documented by: Furosemide (Lasix) 40 mg PO BID17 [facility] Stop: 06/19/20 08:59 Last Admin: 05/23/20 07:57 Dose: 40 mg Documented by: Loratadine (Claritin) 10 mg PO DAILY [facility] Stop: 06/19/20 08:59 Last Admin: 05/23/20 09:19 Dose: Not Given Documented by: Metoprolol Tartrate (Lopressor) 2.5 mg IV Q6 PRN PRN Reason: Tachycardia Stop: 06/21/20 17:59 Miscellaneous Information (Pharmacist Discharge Med Rec Consult) 1 ea N/A UD PRN PRN Reason: Consult Stop: 06/19/20 05:57 Multivitamins (Multivitamin Tab) 1 tab PO QAM [facility] Stop: 06/19/20 08:59 Last Admin: 05/23/20 09:23 Dose: Not Given Documented by: Multivitamins/Minerals (Caltrate Plus) 1 tab PO BID [facility] Stop: 06/19/20 08:59 Last Admin: 05/23/20 09:18 Dose: Not Given Documented by: Nitroglycerin (Nitrostat) 0.4 mg SL UD PRN PRN Reason: Chest Pain Stop: 06/19/20 05:57 Ondansetron HCl (Zofran) 4 mg IV Q6H PRN PRN Reason: Nausea Stop: 06/19/20 05:57 Pantoprazole Sodium (Protonix) 40 mg PO DAILY [facility] Stop: 06/19/20 08:59 Last Admin: 05/23/20 08:00 Dose: 40 mg Documented by: Polyethylene Glycol (Miralax Powder Packet) 17 gm PO DAILY [facility] Stop: 06/19/20 08:59 Last Admin: 05/23/20 07:59 Dose: Not Given Documented by: Simethicone (Mylicon) 80 mg PO Q6 PRN PRN Reason: gas Stop: 06/19/20 05:57 Simvastatin (Zocor) 40 mg PO PM [facility] Stop: 06/19/20 20:59 Last Admin: 05/22/20 21:28 Dose: 40 mg Documented by: (1) Fall Encounter type: initial encounter Qualified Code(s): W19.XXXA - Unspecified fall, initial encounter (2) Altered mental status Altered mental status type: stupor Qualified Code(s): R40.1 - Stupor
--- NOTE | 2020-05-23 17:21 | Palliative Care Consultation ---
Date of Consultation May 23, 2020 Assessment & Plan (1) Goals of care, counseling/discussion: Patient is an 89-year-old female with a past medical history significant for metastatic breast cancer-receiving chemo, Ibrance-last dose approximately 1 month ago, diastolic CHF, CKD, diabetes-A1c 6.5, hypertension, COPD, complete heart block status post pacemaker, subacute CVA and recent hospitalization for pneumonia/UTI/C. difficile. Patient completed a course of p.o. vancomycin on 05/22. Patient is no longer having loose stools per nursing as well as per patient. Chart reviewed, patient seen and examined, collaborated with attending physician Dr. Kilgore. No family at bedside, did speak to patient's daughter, Joan Paul, . Patient lives with her daughter Joan who works full-time, she also names Joan as her medical decision maker and power of insurance defense attorney. Patient states she does have advanced directives-her current CODE STATUS is DNR. -Patient was recently discharged from [facility] to [facility] for rehab-she was there for approximately 1 day when she was found on the floor beside her bed. Patient does remember lying on the floor, does not remember the fall. She did not sustain other injuries. -Patient has been bedbound for the past 3 months, or recent hospitalization has caused significant increase in her weakness. Patient stated she did not want to go to rehab, wanted to return home with her daughter. -Patient's voice is weak, answers questions with 1-2 words, tried to ask primarily yes or no questions so she could just nod. Patient's upper extremity strength 2 out of 6-she has significant upper extremity and lower extremity edema as well as ascites. -Patient has 7 children-several work full-time and are unable to assist with her care. -Patient with significant dysphasia-Per FIRE EXTINGUISHER MECHANIC-has no difficulty with pudding, is on nectar thick liquids. Patient does not enjoy thickened liquids. Nursing reports patient was unable to take her p.o. meds this a.m. -Discussed the possibility of a feeding tube with patient-patient stated she would not want a PEG tube, her daughter is in agreements. -Discussed hospice care and comfort feeding with her daughter Joan, depending on her p.o. intake she would have a limited life expectancy. Patient would be h ospice appropriate if the patient or family wishes. -Daughter stated she will be visiting her mother this evening- will speak with her mother regarding her wishes and the possibility of returning home under hospice care. Daughter understands that she will need to hire caregivers to assist with her care. -Daughter has my cell phone number to call if she has any further questions. -Will continue to follow and assist daughter with medical decision making (2) Generalized weakness: Patient does not wish to return to rehab (3) Dysphasia: Able to take pudding thick, shira aspiration with thin liquids (4) Metastatic breast cancer: Discontinued Ibrance approximately 1 month ago, no improvement in fatigue, pancytopenia slowly improving (5) Diastolic CHF: Significant anasarca and ascites, on Lasix twice daily. If family elects home with hospice and comfort care, would not continue to diurese if she is unable to take adequate p.o. fluids. History of Present Illness Reason for Consultation: Address goals of care Requesting Physician: Dr. Kilgore Attending Physician: Chela Kilgore MD History of Present Illness Patient is an 89-year-old female with a past medical history significant for metastatic breast cancer-receiving chemo, Ibrance-last dose approximately 1 month ago, diastolic CHF, CKD, diabetes-A1c 6.5, hypertension, COPD, complete heart block status post pacemaker, subacute CVA and recent hospitalization for pneumonia/UTI/C. difficile. Patient completed a course of p.o. vancomycin on 05/22. Patient is no longer having loose stools per nursing as well as per patient. Chart reviewed, patient seen and examined, collaborated with attending physician Dr. Kilgore. No family at bedside, did speak to patient's daughter, Joan Paul, . Patient lives with her daughter Joan who works full-time, she also names Joan as her medical decision maker and power of insurance defense attorney. Patient states she does have advanced directives-her current CODE STATUS is DNR. -Patient was recently discharged from [facility] for rehab-she was there for approximately 1 day when she was found on the floor beside her bed. Patient does remember lying on the floor, does not remember the fall. She did not sustain other injuries. -Patient has been bedbound for the past 3 months, or recent hospitalization has caused significant increase in her weakness. Patient stated she did not want to go to rehab, wanted to return home with her daughter. -Patient's voice is weak, answers questions with 1-2 words, tried to ask primarily yes or no questions so she could just nod. Patient's upper extremity strength 2 out of 6-she has significant upper extremity and lower extremity edema as well as ascites. -Patient has 7 children-several work full-time and are unable to assist with her care. -Patient with significant dysphasia-Per [employer] EXTINGUISHER MECHANIC-has no difficulty with pudding, is on nectar thick liquids. Patient does not enjoy thickened liquids. Nursing reports patient was unable to take her p.o. meds this a.m. -Discussed the possibility of a feeding tube with patient-patient stated she would not want a PEG tube, her daughter is in agreements. -Discussed hospice care and comfort feeding with her daughter Joan, depending on her p.o. intake she would have a limited life expectancy. Patient would be hospice appropriate if the patient or family wishes. -Daughter stated she will be visiting her mother this evening- will speak with her mother regarding her wishes and the possibility of returning home under hospice care. Daughter understands that she will need to hire caregivers to assist with her care. Allergies Allergy/AdvReac Type Severity Reaction Status Date / Time pollen extracts Allergy Unknown Verified 05/20/20 02:32 Home Medications Home Medications Medication Instructions Recorded Confirmed Type acetaminophen 500 mg PO Q6H PRN MDD 3000mg/24hr 05/20/20 05/20/20 History albuterol sulfate 2 puff INHALATION Q4 PRN 05/20/20 05/20/20 History albuterol sulfate 2.5 mg INHALATION Q4 PRN 05/20/20 05/20/20 History amoxicillin 2,000 mg PO ONCE PRN 05/20/20 05/20/20 History aspirin 81 mg PO DAILY 05/20/20 05/20/20 History calcium carbonate-vitamin D3 1 cap PO BID 05/20/20 05/20/20 History [Calcium 600 + D(3)] carvedilol 12.5 mg PO BIDM 05/20/20 05/20/20 History citalopram 20 mg PO DAILY 05/20/20 05/20/20 History cranberry 180 mg PO BID 05/20/20 05/20/20 History docusate sodium [Colace Clear] 50 mg PO BID 05/20/20 05/20/20 History ferrous gluconate 240 mg PO DAILY 05/20/20 05/20/20 History fluticasone propion-salmeterol 1 inh INHALATION BID 05/20/20 05/20/20 History [Wixela Inhub] fluticasone propionate [Flonase 1 spray INTRANASAL DAILY 05/20/20 05/20/20 History Allergy Relief] furosemide 40 mg PO BID 05/20/20 05/20/20 History loratadine 10 mg PO DAILY 05/20/20 05/20/20 History neebgjli-arz-RK-lycopen-lutein 1 tab PO DAILY 05/20/20 05/20/20 History [Centrum Silver] nitroglycerin [Nitrostat] 0.4 mg SUBLINGUAL UD PRN 05/20/20 05/20/20 History pantoprazole 40 mg PO DAILY 05/20/20 05/20/20 History polyethylene glycol 3350 [Miralax] 17 g PO DAILY 05/20/20 05/20/20 History simethicone 80 mg PO Q6 PRN 05/20/20 05/20/20 History simvastatin 40 mg PO PM 05/20/20 05/20/20 History vancomycin [Firvanq] 500 mg PO Q6 05/20/20 05/20/20 History Patient History Social History Preferred Language: Upper Sorbian Communication Ability: Effective Entry Level Civil Engineer Required: No Beliefs That Will Affect Care: None marital status: / Current Living Situation: Rehab Other Information That Helps Us Care for You: No Feels Safe at Home: Yes Safety Concerns: Feels Safe At This Time Smoking Status: Never smoker Hx Alcohol Use: No Hx Substance Use: No Review of Systems Review of Systems: Patient denies fever, chills, chest pain, increased shortness of breath Positive for weakness and recent left lower quadrant abdominal pain-resolved Physical Exam Physical Exam: PE: Patient awake, very weak, voice is just a whisper. HEENT: Dry mucous membranes Respirations: Unlabored, on O2 at 3 L CV: Irregular, upper and lower extremity edema Abdomen: Soft, nontender to palpation, positive ascites Extremities: Significant weakness-upper extremity strength 2/6 Neuro: Oriented to person place and time Psych: Flat affect Results & Data Vital Signs (Past 12 Hours) Vital Signs Temp Pulse Pulse Resp BP Pulse Ox 05/23/20 16:58 73 05/23/20 15:06 97.3 F L 63 18 147/66 H 100 05/23/20 11:00 98.1 F 79 20 135/77 100 05/23/20 07:00 97.9 F 95 H 20 152/76 H 92 PG Care Time/CCT Total # of Minutes Spent Total Time Spent with Patient: Total time spent 70 minutes with greater than 50% of the time at bedside assessing patient's current function, determining her wishes regarding feeding tube. Spoke with patient's daughter by phone. Coding Level of Care Code 98144 Inpt Consult Level 3 Diagnoses Goals of care, counseling/discussion Z71.89 Generalized weakness R53.1 Dysphasia R47.02 Metastatic breast cancer C50.919 Diastolic CHF I50.30 Time Spent (min) 70
--- NOTE | 2020-05-23 18:35 | XRay Report ---
XR chest 1V portable HISTORY: Shortness of breath. COMPARISON: Chest 05/20/2020. FINDINGS: No pneumothorax. Old bilateral pleural effusions which have progressed. There are bibasilar densities. Old, healed right-sided rib fractures. Surgical clips overlying the right axilla. No evid ence for pulmonary edema. The heart remains mildly enlarged. There is a left-sided dual-chamber pacem hailee. Calcifications within the aortic knob. A few bibasilar densities. IMPRESSION: 1. No evidence for pulmonary edema. 2. Small bilateral pleural effusions which have slightly progressed. 3. Stable mild cardiomegaly. 4. Bibasilar densities are nonspecific but favor atelectasis. ACT 112: Negative or not required by law. Electronically signed by: Trevin Michael M.D. 05/23/2020 6:34 PM
[2020-05-23] MEDS: SIMVASTATIN 40 MG TAB PO SCH (21:34)
[2020-05-23] MEDS ORDERED: MoRPHine SULFATE 2 MG/ML CARP IV PRN (21:52)
[2020-05-24 08:06] LABS: Albumin Level 1.9 gm/dl (3.4-5.0); BUN Creatinine Ratio 25.7 (10-20); Calcium 8.2 mg/dl (8.5-10.1); Creatinine Clr Calc Pharmacy 68.4 ml/min; Est GFR (African American) 95.5; Est GFR (Non-African American) 82.4; Magnesium 2.3 mg/dl (1.8-2.4); Potassium 3.6 mmol/L (3.5-5.1)
[2020-05-24 08:09] LABS: Albumin Globulin Ratio 0.6 (0.9-2); Bilirubin,Total 0.4 mg/dl (0.2-1); Globulin 3.1 gm/dl (2.5-4.0); Phosphorus 2.5 mg/dl (2.5-4.9)
[2020-05-24] MEDS: FUROSEMIDE 40 MG TAB PO SCH ×2 (08:52→17:25)
[2020-05-24] MEDS: CITALOPRAM 20 MG TAB PO SCH (08:52)
[2020-05-24] MEDS: PANTOprazole 40 MG TAB PO SCH (08:53)
[2020-05-24] MEDS: carvediloL 12.5 MG TAB PO SCH ×2 (08:53→17:25)
[2020-05-24] MEDS: ASPIRIN 81 MG ECTAB PO SCH (08:53)
[2020-05-24] MEDS: FLUTICASONE PROPIONATE NA SPR 16 GM BTL SCH (08:54)
[2020-05-24] MEDS: FLUTICASONE/VILANTEROL 100/25MCG 14 PUFFS/INHALER INH SCH (08:54)
[2020-05-24] MEDS: FERROUS GLUCONATE 324 MG TAB PO SCH (08:54)
[2020-05-24] MEDS: LORATADINE 10 MG TAB PO SCH (08:54)
[2020-05-24] MEDS: DOCUSATE SODIUM 100 MG CAP PO SCH ×2 (08:54→20:40)
[2020-05-24] MEDS: MULTIVITAMIN TAB PO SCH (08:55)
[2020-05-24] MEDS: CALCIUM 600MG + VIT D 400 IU TAB PO SCH ×2 (08:55→20:40)
[2020-05-24] MEDS: POLYETHYLENE (MIRALAX) 17 GM PACK PO SCH (08:55)
--- NOTE | 2020-05-24 14:21 | Hospitalist Progress Note ---
Date of Service May 24, 2020 Assessment & Plan (1) Fall: 89-year-old female with complicated past medical history as mentioned in H&P was admitted from [facility] with a history of unwitnessed fall She has been very weak generally and has not been ambulant for the last month or so She was discharged from [facility] and has been in [facility] since that time She was found on the ground beside her bed curled up without any incontinence or significant injury Skeletal survey and CAT scan remain unremarkable Not being able to participate in physical therapy due to the weakness 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 Does not have any focal localizing signs but remains generally weak and lethargic We will give aspirin and no Plavix due to thrombocytopenia (2) Generalized weakness: She has been generally weak and almost bedbound for the last few months In and out from [facility] and discharged to [facility] last weakness seems to be multifactorial-deconditioning from recent recurrent h ospitalization and infections, metastatic breast cancer on recent chemo, doubt a stroke and/or infection are causing this problem Again she will need to have PT and OT evaluation Discussed with daughter in length She has this kind of episode at times when she does not communicate, does not move and does not eat Immediately after the episode she becomes alert and awake and start talking and eating She has had 1 of this episode here-remains hemodynamically stable We will ask for palliative care consult for further direction of management Appreciate palliative care input and recommendation Recommend home hospice History of CVA Was on aspirin and Plavix with Plavix is off due to thrombocytopenia Echo and carotid ultrasound remain unremarkable Repeat CT of the head did show right temporal hypodensity which is suggestive of infarction Discussed with Dr. London Only aspirin will be continued and Plavix will be discontinued due to thrombocytopenia and to decrease the risk of bleeding Speech therapy evaluation barium swallow study recommended to document any aspiration while eating She has been eating and drinking reasonably Video swallow could not be done due to mental status and extreme drowsiness and weakness Patient will not be able to do any video swallow at this time (3) Altered mental status: Noted to have more confusion about 2 days prior, noted by previous hospitalist Remains pleasantly confused Seems to be answering some questions appropriately (4) CKD (chronic kidney disease), stage III: Has chronic kidney disease with normal electrolytes (5) Complete heart block: Status post pacemaker placement No acute cardiac issue (6) COPD (chronic obstructive pulmonary disease): No acute exacerbation (7) Diastolic CHF: Has bilateral leg edema seems to be chronic Chest x-ray did not show any fluid overload and of CHF Echo of the heart-atrial fibrillation with ventricular pacing rhythm, severe concentric left ventricular hypertrophy with normal wall motion and EF of 65 to 70%, aortic valve sclerosis without significant stenosis, mild aortic regurgitation Has edema with possible mild CHF-wound check with chest x-ray Will try very small dose of Lasix (8) C. difficile colitis: History of C. difficile colitis about 3 weeks back Has been on vancomycin, finished po vanco (9) Diabetes mellitus: SSI (10) Metastatic breast cancer: Has not been getting any chemo and radiation (11) Thrombocytopenia: Antineoplastic chemotherapy induced pancytopenia History of pancytopenia and thrombocytopenia Likely secondary to chemo induced and could be due to infiltration of bone marrow from breast cancer We will monitor DVT prophylaxis SCDs CODE STATUS DNR/DNI Discussed in detail with the daughter Admission and Anticipated Discharge Date Admission Date: May 20, 2020 Subjective Patient is sitting up in bed, in no acute distress. She is able to answer most questions appropriately. She appears very fatigued. SHIPPING TEAM LEADER at the bedside. Review of Systems Review of Systems: Patient has no complaints at this time, however she is little drowsy and fatigued appearing Physical Exam Physical Exam: Physical Exam: Elderly female, sitting up in bed, in no acute distress, appears comfortable but remains very fatigued Constitutional: + ill appearing, + obese, in no acute distress Eyes: PERRL, conjunctivae normal, anicteric sclerae ENMT: external ear and nose normal, oropharynx normal Neck: trachea midline, no thyromegaly Respiratory: normal respiratory effort; no respiratory distress Auscultation: + crackles (Minimal crackles at the bases) Cardiovascular: Rate/Rhythm: + abnormal rate and + abnormal rhythm Heart Sounds: no murmur Extremities: + edema (Bilateral leg edema seems to be improving) Gastrointestinal (Abdomen): Inspection/Auscultation: abdomen normal to inspection; abdomen not distended Percussion/Palpation: abdomen soft; abdomen nontender Musculoskeletal: No acute arthritis involving any joints Neurologic: Patient is awake and answers most questions appropriately, however slowly, appears extremely weak Results & Data Results & Data ([facility]) Vital Signs (Past 12 Hours) Vital Signs Temp Pulse Resp BP Pulse Ox 05/24/20 11:10 36.4 C L 98 H 18 144/78 H 100 05/24/20 07:38 36.6 C 106 H 20 156/80 H 99 05/24/20 04:52 36.8 C 78 18 129/68 94 Laboratory Results 05/24/20 Range/Units 06:44 Sodium 147 H (136-145) mmol/L Potassium 3.6 (3.5-5.1) mmol/L Chloride 111 H (98-107) mmol/L Carbon Dioxide 34 H (21-32) mmol/L Anion Gap 2.0 L (3-11) BUN 15 (7-18) mg/dl Creatinine 0.59 L (0.6-1.2) mg/dl Est Cr Clr Drug Dosing 68.4 ml/min Est GFR ( Amer) 95.5 Est GFR (Non-Af Amer) 82.4 BUN/Creatinine Ratio 25.7 H (10-20) Glucose 103 H (70-99) mg/dl Calcium 8.2 L (8.5-10.1) mg/dl Phosphorus 2.5 (2.5-4.9) mg/dl Magnesium 2.3 (1.8-2.4) mg/dl Total Bilirubin 0.4 (0.2-1) mg/dl AST 46 H (15-37) U/L ALT 32 (12-78) U/L Alkaline Phosphatase 104 (45-117) U/L Total Protein 5.0 L (6.4-8.2) gm/dl Albumin 1.9 L (3.4-5.0) gm/dl Globulin 3.1 (2.5-4.0) gm/dl Albumin/Globulin Ratio 0.6 L (0.9-2) Medications Administered Current Inpatient Medications Acetaminophen (Tylenol) 650 mg PO Q4H PRN PRN Reason: Pain or Fever Stop: 06/19/20 05:57 Albuterol (Ventolin 0.083% 2.5mg/3ml) 2.5 mg INH Q4 PRN PRN Reason: Wheezing Stop: 06/19/20 05:57 Albuterol (Ventolin Hfa) 2 puffs INH Q4 PRN PRN Reason: Shortness Of Breath Or Wheezing Stop: 06/19/20 05:57 Aspirin (Ecotrin Ectab) 81 mg PO DAILY [facility] Stop: 08/10/20 08:59 Last Admin: 05/24/20 08:53 Dose: 81 mg Documented by: Carvedilol (Coreg) 12.5 mg PO BIDM [facility] Stop: 06/19/20 07:59 Last Admin: 05/24/20 08:53 Dose: 12.5 mg Documented by: Citalopram Hydrobromide (Celexa) 20 mg PO DAILY [facility] Stop: 06/19/20 08:59 Last Admin: 05/24/20 08:52 Dose: 20 mg Documented by: Docusate Sodium (Colace) 100 mg PO BID [facility] Stop: 06/19/20 08:59 Last Admin: 05/24/20 08:54 Dose: Not Given Documented by: Ferrous Gluconate (Ferrous Gluconate) 324 mg PO DAILY [facility] Stop: 06/19/20 08:59 Last Admin: 05/24/20 08:54 Dose: Not Given Documented by: Fluticasone Propionate (Flonase) 1 sprays NA DAILY [facility] Stop: 06/19/20 08:59 Last Admin: 05/24/20 08:54 Dose: 1 sprays Documented by: Fluticasone/Vilanterol (Breo Ellipta 100/25 Mcg Inh) 1 puffs INH DAILY [facility] Stop: 06/19/20 08:59 Last Admin: 05/24/20 08:54 Dose: 1 puffs Documented by: Furosemide (Lasix) 40 mg PO BID17 [facility] Stop: 06/19/20 08:59 Last Admin: 05/24/20 08:52 Dose: 40 mg Documented by: Loratadine (Claritin) 10 mg PO DAILY [facility] Stop: 06/19/20 08:59 Last Admin: 05/24/20 08:54 Dose: 10 mg Documented by: Metoprolol Tartrate (Lopressor) 2.5 mg IV Q6 PRN PRN Reason: Tachycardia Stop: 06/21/20 17:59 Miscellaneous Information (Pharmacist Discharge Med Rec Consult) 1 ea N/A UD PRN PRN Reason: Consult Stop: 06/19/20 05:57 Morphine Sulfate (Morphine Sulfate) 2 mg IV Q2H PRN PRN Reason: Pain Stop: 06/06/20 21:51 Last Admin: 05/23/20 22:39 Dose: 2 mg Documented by: Multivitamins (Multivitamin Tab) 1 tab PO QAM [facility] Stop: 06/19/20 08:59 Last Admin: 05/24/20 08:55 Dose: Not Given Documented by: Multivitamins/Minerals (Caltrate Plus) 1 tab PO BID [facility] Stop: 06/19/20 08:59 Last Admin: 05/24/20 08:55 Dose: Not Given Documented by: Nitroglycerin (Nitrostat) 0.4 mg SL UD PRN PRN Reason: Chest Pain Stop: 06/19/20 05:57 Ondansetron HCl (Zofran) 4 mg IV Q6H PRN PRN Reason: Nausea Stop: 06/19/20 05:57 Pantoprazole Sodium (Protonix) 40 mg PO DAILY [facility] Stop: 06/19/20 08:59 Last Admin: 05/24/20 08:53 Dose: 40 mg Documented by: Polyethylene Glycol (Miralax Powder Packet) 17 gm PO DAILY [facility] Stop: 06/19/20 08:59 Last Admin: 05/24/20 08:55 Dose: Not Given Documented by: Simethicone (Mylicon) 80 mg PO Q6 PRN PRN Reason: gas Stop: 06/19/20 05:57 Simvastatin (Zocor) 40 mg PO PM [facility] Stop: 06/19/20 20:59 Last Admin: 05/23/20 21:34 Dose: Not Given Documented by: (1) Fall Encounter type: initial encounter Qualified Code(s): W19.XXXA - Unspecified fall, initial encounter (2) Altered mental status Altered mental status type: stupor Qualified Code(s): R40.1 - Stupor
--- NOTE | 2020-05-24 15:31 | Palliative Care Progress Note ---
Date of Service May 24, 2020 Assessment & Plan (1) Goals of care, counseling/discussion: Patient is an 89-year-old female with a past medical history significant for metastatic breast cancer-receiving chemo, Ibrance-last dose approximately 1 month ago, diastolic CHF, CKD, diabetes-A1c 6.5, hypertension, COPD, complete heart block status post pacemaker, subacute CVA and recent hospitalization for pneumonia/UTI/C. difficile. Patient completed a course of p.o. vancomycin on 05/22. Patient is no longer having loose stools per nursing as well as per patient. -Patient daughter Joan has made the decision to pursue Home Hospice. -Patient lives with her daughter Joan who works full-time, she also names Joan as her medical decision maker and power of customs verifier. Patient states she does have advanced directives-her current CODE STATUS is DNR. -Patient was recently discharged from [facility] to [facility] for rehab-she was there for approximately 1 day when she was found on the floor beside her bed. Patient does remember lying on the floor, does not remember the fall. She did not sustain other injuries. -Patient has been bedbound for the past 3 months, or recent hospitalization has caused significant increase in her weakness. Patient stated she did not want to go to rehab, wanted to return home with her daughter. -Patient's voice is weak, answers questions with 1-2 words, tried to ask primarily yes or no questions so she could just nod. Patient's upper extremity strength 2 out of 6-she has significant upper extremity and lower extremity edema as well as ascites. -Patient has 7 children-several work full-time and are unable to assist with her care. -Patient with significant dysphasia-Per WOOLEN TESTER-has no difficulty with pudding, is on nectar thick liquids. Patient does not enjoy thickened liquids. Nursing reports patient was unable to take her p.o. meds this a.m. -Discussed the possibility of a feeding tube with patient-patient stated she would not want a PEG tube, her daughter is in agreements. -Discussed hospice care and comfort feeding with her daughter Joan, depending on her p.o. intake she would have a limited life expectancy. Patient would be hospice appropriate if the patient or family wishes. -Case management discussed with the patients daughter and she chose [facility]. -I spoke with Sara at [facility] and agreed on a Hospice diagnosis of Metastatic breast CA and end-stage CHF. -Case management arranging discharge planning. -Please contact Palliative Care with any additional needs. We will follow peripherally through discharge. (2) Generalized weakness: Patient does not wish to return to rehab (3) Dysphasia: Able to take pudding thick, shira aspiration with thin liquids (4) Metastatic breast cancer: Discontinued Ibrance approximately 1 month ago, no improvement in fatigue, pancytopenia slowly improving (5) Diastolic CHF: Significant anasarca and ascites, on Lasix twice daily. If family elects home with hospice and comfort care, would not continue to diurese if she is unable to take adequate p.o. fluids. Subjective Pt really lethargic but able to open her eyes and follow simple commands Review of Systems Review of Systems: Patient denies fever, chills, chest pain, increased shortness of breath Positive for weakness and recent left lower quadrant abdominal pain-resolved + back pain Physical Exam Constitutional: + ill appearing, + obese and + lethargic; no acute distress Eyes: PERRL, conjunctivae normal, anicteric sclerae ENMT: external ear and nose normal, oropharynx normal Neck: trachea midline, no thyromegaly Respiratory: normal respiratory effort; no respiratory distress Auscultation: + crackles (Minimal crackles at the bases) Cardiovascular: Rate/Rhythm: + abnormal rate and + abnormal rhythm Heart Sounds: no murmur Extremities: + edema (Bilateral leg edema seems to be improving) Gastrointestinal (Abdomen): Inspection/Auscultation: abdomen normal to inspection; abdomen not distended Percussion/Palpation: abdomen soft; abdomen nontender Neurologic: moves all extremities Lymphatic: no cervical or axillary lymphadenopathy Results & Data Vital Signs (Past 12 Hours) Vital Signs Temp Pulse Pulse Resp BP Pulse Ox 05/24/20 15:18 36.3 C L 96 H 18 140/69 100 05/24/20 11:10 36.4 C L 98 H 18 144/78 H 100 05/24/20 07:38 36.6 C 106 H 20 156/80 H 99 05/24/20 04:52 36.8 C 78 18 129/68 94 PG Care Time/CCT Total # of Minutes Spent Total Time Spent with Patient: Total time spent is greater than 50% in coordination of care (as documented) at patient's floor/unit and/or counseling patient: 35 Coding Level of Care Code 37274 Subseq Hosp Care Lvl 3 Diagnoses Goals of care, counseling/discussion Z71.89 Generalized weakness R53.1 Dysphasia R47.02 Metastatic breast cancer C50.919 Diastolic CHF I50.30 Time Spent (min) 35 Time Spent Midlevel total time spent 35 minutes with > 50% of that time spent assessing the patient and discussing with IDT and Hospice agency
[2020-05-24] MEDS: SIMVASTATIN 40 MG TAB PO SCH (20:40)
[2020-05-25 08:47] LABS: BUN Creatinine Ratio 24.2 (10-20); Calcium 8.3 mg/dl (8.5-10.1); Creatinine Clr Calc Pharmacy 65.9 ml/min; Magnesium 2.2 mg/dl (1.8-2.4); Phosphorus 2.4 mg/dl (2.5-4.9); Potassium 3.5 mmol/L (3.5-5.1)
--- NOTE | 2020-05-25 09:27 | Hospitalist Progress Note ---
Date of Service May 25, 2020 Assessment & Plan (1) Fall: 89-year-old female with complicated past medical history as mentioned in H&P was admitted from [facility] with a history of unwitnessed fall She has been very weak generally and has not been ambulant for the last month or so She was discharged from [facility] and has been in [facility] since that time She was found on the ground beside her bed curled up without any incontinence or significant injury Skeletal survey and CAT scan remain unremarkable Not being able to participate in physical therapy due to the weakness 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 Does not have any focal localizing signs but remains generally weak and lethargic We will give aspirin and no Plavix due to thrombocytopenia (2) Generalized weakness: She has been generally weak and almost bedbound for the last few months In and out from [facility] and discharged to [facility] last weakness seems to be multifactorial-deconditioning from recent recurrent h ospitalization and infections, metastatic breast cancer on recent chemo, doubt a stroke and/or infection are causing this problem Again she will need to have PT and OT evaluation Discussed with daughter in length She has this kind of episode at times when she does not communicate, does not move and does not eat Immediately after the episode she becomes alert and awake and start talking and eating She has had 1 of this episode here-remains hemodynamically stable We will ask for palliative care consult for further direction of management Appreciate palliative care input and recommendation Recommend home hospice History of CVA Was on aspirin and Plavix with Plavix is off due to thrombocytopenia Echo and carotid ultrasound remain unremarkable Repeat CT of the head did show right temporal hypodensity which is suggestive of infarction Discussed with Dr. London Only aspirin will be continued and Plavix will be discontinued due to thrombocytopenia and to decrease the risk of bleeding Speech therapy evaluation barium swallow study recommended to document any aspiration while eating She has been eating and drinking reasonably Video swallow could not be done due to mental status and extreme drowsiness and weakness Patient will not be able to do any video swallow at this time (3) Altered mental status: Noted to have more confusion few days prior, noted by previous hospitalist Remains pleasantly confused Seems to be answering some questions appropriately (4) CKD (chronic kidney disease), stage III: Has chronic kidney disease with normal electrolytes (5) Complete heart block: Status post pacemaker placement No acute cardiac issue (6) COPD (chronic obstructive pulmonary disease): No acute exacerbation (7) Diastolic CHF: Has bilateral leg edema seems to be chronic Chest x-ray did not show any fluid overload and of CHF Echo of the heart-atrial fibrillation with ventricular pacing rhythm, severe concentric left ventricular hypertrophy with normal wall motion and EF of 65 to 70%, aortic valve sclerosis without significant stenosis, mild aortic regurgitation Has edema with possible mild CHF-wound check with chest x-ray Will try very small dose of Lasix (8) C. difficile colitis: History of C. difficile colitis about 3 weeks back Has been on vancomycin, finished po vanco (9) Diabetes mellitus: SSI (10) Metastatic breast cancer: Has not been getting any chemo and radiation (11) Thrombocytopenia: Antineoplastic chemotherapy induced pancytopenia History of pancytopenia and thrombocytopenia Likely secondary to chemo induced and could be due to infiltration of bone marrow from breast cancer We will monitor DVT prophylaxis SCDs CODE STATUS DNR/DNI Tried to reach pt's daughter today (05/24) but no answer. Admission and Anticipated Discharge Date Admission Date: May 20, 2020 Subjective Patient is sitting up in bed, in no acute distress. She is able to answer most questions appropriately. She appears very fatigued. Review of Systems Review of Systems: Patient has no complaints at this time, however she is little drowsy and fatigued appearing Constitutional: + malaise, + weakness and + anorexia Physical Exam Physical Exam: Physical Exam: Elderly female, sitting up in bed, in no acute distress, appears comfortable but remains very fatigued Constitutional: + ill appearing, + obese, in no acute distress Eyes: PERRL, conjunctivae normal, anicteric sclerae ENMT: external ear and nose normal, oropharynx normal Neck: trachea midline, no thyromegaly Respiratory: normal respiratory effort; no respiratory distress Auscultation: + crackles (Minimal crackles at the bases) Cardiovascular: Rate/Rhythm: + abnormal rate and + abnormal rhythm Heart Sounds: no murmur Extremities: + edema (Bilateral leg edema seems to be improving) Gastrointestinal (Abdomen): Inspection/Auscultation: abdomen normal to inspection; abdomen not distended Percussion/Palpation: abdomen soft; abdomen nontender Musculoskeletal: No acute arthritis involving any joints Neurologic: Patient is awake and answers most questions appropriately, however slowly, appears extremely weak Results & Data Results & Data ([facility]) Vital Signs (Past 12 Hours) Vital Signs Temp Pulse Pulse Pulse Resp BP Pulse Ox 05/25/20 07:03 36.6 C 90 18 144/71 H 100 05/25/20 04:16 36.4 C L 69 18 147/76 H 100 05/24/20 23:35 100 H 05/24/20 23:00 36.4 C L 86 18 150/79 H 100 Laboratory Results 05/25/20 Range/Units 07:43 Sodium 147 H (136-145) mmol/L Potassium 3.5 (3.5-5.1) mmol/L Chloride 110 H (98-107) mmol/L Carbon Dioxide 35 H (21-32) mmol/L Anion Gap 2.0 L (3-11) BUN 15 (7-18) mg/dl Creatinine 0.60 (0.6-1.2) mg/dl Est Cr Clr Drug Dosing 65.9 ml/min Est GFR ( Amer) 95.0 Est GFR (Non-Af Amer) 82.0 BUN/Creatinine Ratio 24.2 H (10-20) Glucose 117 H (70-99) mg/dl Calcium 8.3 L (8.5-10.1) mg/dl Phosphorus 2.4 L (2.5-4.9) mg/dl Magnesium 2.2 (1.8-2.4) mg/dl Medications Administered Current Inpatient Medications Acetaminophen (Tylenol) 650 mg PO Q4H PRN PRN Reason: Pain or Fever Stop: 06/19/20 05:57 Albuterol (Ventolin 0.083% 2.5mg/3ml) 2.5 mg INH Q4 PRN PRN Reason: Wheezing Stop: 06/19/20 05:57 Albuterol (Ventolin Hfa) 2 puffs INH Q4 PRN PRN Reason: Shortness Of Breath Or Wheezing Stop: 06/19/20 05:57 Aspirin (Ecotrin Ectab) 81 mg PO DAILY [facility] Stop: 06/19/20 08:59 Last Admin: 05/24/20 08:53 Dose: 81 mg Documented by: Carvedilol (Coreg) 12.5 mg PO BIDM [facility] Stop: 06/19/20 07:59 Last Admin: 05/24/20 17:25 Dose: 12.5 mg Documented by: Citalopram Hydrobromide (Celexa) 20 mg PO DAILY [facility] Stop: 06/19/20 08:59 Last Admin: 05/24/20 08:52 Dose: 20 mg Documented by: Docusate Sodium (Colace) 100 mg PO BID [facility] Stop: 06/19/20 08:59 Last Admin: 05/24/20 20:40 Dose: 100 mg Documented by: Ferrous Gluconate (Ferrous Gluconate) 324 mg PO DAILY [facility] Stop: 06/19/20 08:59 Last Admin: 05/24/20 08:54 Dose: Not Given Documented by: Fluticasone Propionate (Flonase) 1 sprays NA DAILY [facility] Stop: 06/19/20 08:59 Last Admin: 05/24/20 08:54 Dose: 1 sprays Documented by: Fluticasone/Vilanterol (Breo Ellipta 100/25 Mcg Inh) 1 puffs INH DAILY [facility] Stop: 06/19/20 08:59 Last Admin: 05/24/20 08:54 Dose: 1 puffs Documented by: Furosemide (Lasix) 40 mg PO BID17 [facility] Stop: 06/19/20 08:59 Last Admin: 05/24/20 17:25 Dose: 40 mg Documented by: Potassium Chloride (K Yogesh / Wtr) 10 meq in 100 mls @ 100 mls/hr IV Q1H [facility] Stop: 05/25/20 11:29 Loratadine (Claritin) 10 mg PO DAILY [facility] Stop: 06/19/20 08:59 Last Admin: 05/24/20 08:54 Dose: 10 mg Documented by: Metoprolol Tartrate (Lopressor) 2.5 mg IV Q6 PRN PRN Reason: Tachycardia Stop: 06/21/20 17:59 Miscellaneous Information (Pharmacist Discharge Med Rec Consult) 1 ea N/A UD PRN PRN Reason: Consult Stop: 06/19/20 05:57 Morphine Sulfate (Morphine Sulfate) 2 mg IV Q2H PRN PRN Reason: Pain Stop: 06/06/20 21:51 Last Admin: 05/23/20 22:39 Dose: 2 mg Documented by: Multivitamins (Multivitamin Tab) 1 tab PO QAM [facility] Stop: 06/19/20 08:59 Last Admin: 05/24/20 08:55 Dose: Not Given Documented by: Multivitamins/Minerals (Caltrate Plus) 1 tab PO BID [facility] Stop: 06/19/20 08:59 Last Admin: 05/24/20 20:40 Dose: 1 tab Documented by: Nitroglycerin (Nitrostat) 0.4 mg SL UD PRN PRN Reason: Chest Pain Stop: 06/19/20 05:57 Ondansetron HCl (Zofran) 4 mg IV Q6H PRN PRN Reason: Nausea Stop: 06/19/20 05:57 Pantoprazole Sodium (Protonix) 40 mg PO DAILY [facility] Stop: 06/19/20 08:59 Last Admin: 05/24/20 08:53 Dose: 40 mg Documented by: Polyethylene Glycol (Miralax Powder Packet) 17 gm PO DAILY [facility] Stop: 06/19/20 08:59 Last Admin: 05/24/20 08:55 Dose: Not Given Documented by: Simethicone (Mylicon) 80 mg PO Q6 PRN PRN Reason: gas Stop: 06/19/20 05:57 Simvastatin (Zocor) 40 mg PO PM [facility] Stop: 06/19/20 20:59 Last Admin: 05/24/20 20:40 Dose: 40 mg Documented by: (1) Fall Encounter type: initial encounter Qualified Code(s): W19.XXXA - Unspecified fall, initial encounter (2) Altered mental status Altered mental status type: stupor Qualified Code(s): R40.1 - Stupor
[2020-05-25] MEDS: LORATADINE 10 MG TAB PO SCH (10:24)
[2020-05-25] MEDS: FERROUS GLUCONATE 324 MG TAB PO SCH (10:24)
[2020-05-25] MEDS: PANTOprazole 40 MG TAB PO SCH (10:24)
[2020-05-25] MEDS: carvediloL 12.5 MG TAB PO SCH ×2 (10:24→16:25)
[2020-05-25] MEDS: ASPIRIN 81 MG ECTAB PO SCH (10:24)
[2020-05-25] MEDS: CITALOPRAM 20 MG TAB PO SCH (10:25)
[2020-05-25] MEDS: FUROSEMIDE 40 MG TAB PO SCH ×2 (10:25→16:24)
[2020-05-25] MEDS: FLUTICASONE/VILANTEROL 100/25MCG 14 PUFFS/INHALER INH SCH (10:26)
[2020-05-25] MEDS: FLUTICASONE PROPIONATE NA SPR 16 GM BTL SCH (10:26)
[2020-05-25] MEDS: CALCIUM 600MG + VIT D 400 IU TAB PO SCH ×2 (10:26→22:36)
[2020-05-25] MEDS: DOCUSATE SODIUM 100 MG CAP PO SCH ×2 (10:27→22:36)
[2020-05-25] MEDS: POLYETHYLENE (MIRALAX) 17 GM PACK PO SCH (10:29)
[2020-05-25] MEDS: MULTIVITAMIN TAB PO SCH (10:29)
[2020-05-25] MEDS: POTASSIUM CHLORIDE / WTR 10 MEQ/100 ML PLCT IV SCH ×3 (10:58→14:54)
[2020-05-25] MEDS ORDERED: POTASSIUM CHLORIDE 20 MEQ TABCR PO ONE (12:45)
--- NOTE | 2020-05-25 14:34 | Palliative Care Progress Note ---
Date of Service May 25, 2020 Assessment & Plan (1) Goals of care, counseling/discussion: Patient is an 89-year-old female with a past medical history significant for metastatic breast cancer-receiving chemo, Ibrance-last dose approximately 1 month ago, diastolic CHF, CKD, diabetes-A1c 6.5, hypertension, COPD, complete heart block status post pacemaker, subacute CVA and recent hospitalization for pneumonia/UTI/C. difficile. Patient completed a course of p.o. vancomycin on 05/22. Patient is no longer having loose stools per nursing as well as per patient. -Patient daughter Joan has made the decision to pursue Home Hospice. -Patient lives with her daughter Joan who works full-time, she also names Joan as her medical decision maker and power of county attorney. Patient states she does have advanced directives-her current CODE STATUS is DNR. -Patient was recently discharged from [facility] to [facility] for rehab-she was there for approximately 1 day when she was found on the floor beside her bed. Patient does remember lying on the floor, does not remember the fall. She did not sustain other injuries. -Patient has been bedbound for the past 3 months, or recent hospitalization has caused significant increase in her weakness. Patient stated she did not want to go to rehab, wanted to return home with her daughter. -Patient's voice is stronger on exam today. On prior exam patient was not able to lift upper extremities off the bed-today patient was able to feed herself, wa s able to raise her right arm over her head -Patient has 7 children-several work full-time and are unable to assist with her care. -Patient with significant dysphasia-Per [employer]-has no difficulty with pudding, is on nectar thick liquids. Patient does not enjoy thickened liquids. patient was unable to take her p.o. meds the morning of the , per nursing she was able to take her p.o. meds without difficulty today -Discussed the possibility of a feeding tube with patient-patient stated she would not want a PEG tube, her daughter is in agreements. -Case management discussed with the patients daughter and she chose [facility]. -Case management assisting with discharge planning. -Attempted to reach patient's daughter today-N/A -Please contact Palliative Care with any additional needs. (2) Generalized weakness: Patient does not wish to return to rehab (3) Dysphasia: Able to take pudding thick, shira aspiration with thin liquids (4) Metastatic breast cancer: Discontinued Ibrance approximately 1 month ago, no improvement in fatigue, pancytopenia slowly improving (5) Diastolic CHF: Significant anasarca and ascites, on Lasix twice daily. If family elects home with hospice and comfort care, would not continue to diurese if she is unable to take adequate p.o. fluids. Subjective Patient awake and more alert, no acute distress Patient's voice is stronger, able to carry on conversation with short sentences. Patient was able to feed herself at lunch. Nursing reports patient's strength waxes and wanes-but overall is improved. Nursing reports patient was able to take her p.o. meds this a.m. Review of Systems Review of Systems: Patient denies fever, chills, chest pain, shortness of breath, or abdominal pain Physical Exam Physical Exam: PE: Patient sitting upright in bed, had just fed herself lunch, no acute distress HEENT: EOMI, mild [place] Respirations: Clear breath sounds bilaterally CV: Regular rate, positive upper and lower extremity edema Abdomen: Soft, nontender, positive ascites Extremities: Patient able to lift her arms and feed herself lunch today, continues to have lower extremity weakness Neuro: Patient oriented to place and self, moderate cognitive deficits Results & Data Vital Signs (Past 12 Hours) Vital Signs Temp Pulse Resp BP Pulse Ox 05/25/20 11:08 97.0 F L 92 H 18 131/84 100 05/25/20 07:03 97.9 F 90 18 144/71 H 100 05/25/20 04:16 97.5 F L 69 18 147/76 H 100 PG Care Time/CCT Total # of Minutes Spent Total Time Spent with Patient: Total time spent 35 minutes with greater than 50% of time spent at bedside assessing patient's current status, answering her questions and addressing her concerns-patient with moderate cognitive deficits. Coding Level of Care Code 47331 Subseq Hosp Care Lvl 3 Diagnoses Goals of care, counseling/discussion Z71.89 Generalized weakness R53.1 Dysphasia R47.02 Metastatic breast cancer C50.919 Diastolic CHF I50.30 Time Spent (min) 35
[2020-05-25] MEDS: SIMVASTATIN 40 MG TAB PO SCH (22:36)
[2020-05-26] MEDS: CALCIUM 600MG + VIT D 400 IU TAB PO SCH ×2 (08:18→20:14)
[2020-05-26] MEDS: CITALOPRAM 20 MG TAB PO SCH (08:18)
[2020-05-26] MEDS: carvediloL 12.5 MG TAB PO SCH ×2 (08:18→17:11)
[2020-05-26] MEDS: LORATADINE 10 MG TAB PO SCH (08:18)
[2020-05-26] MEDS: FERROUS GLUCONATE 324 MG TAB PO SCH (08:19)
[2020-05-26] MEDS: ASPIRIN 81 MG ECTAB PO SCH (08:20)
[2020-05-26] MEDS: FUROSEMIDE 40 MG TAB PO SCH ×2 (08:20→17:11)
[2020-05-26] MEDS: MULTIVITAMIN TAB PO SCH (08:20)
[2020-05-26] MEDS: PANTOprazole 40 MG TAB PO SCH (08:20)
[2020-05-26] MEDS: FLUTICASONE PROPIONATE NA SPR 16 GM BTL SCH (08:21)
[2020-05-26] MEDS: FLUTICASONE/VILANTEROL 100/25MCG 14 PUFFS/INHALER INH SCH (08:21)
[2020-05-26] MEDS: POLYETHYLENE (MIRALAX) 17 GM PACK PO SCH (08:21)
[2020-05-26] MEDS: POTASSIUM CHLORIDE 20 MEQ TABCR PO SCH (08:22)
[2020-05-26] MEDS: DOCUSATE SODIUM 100 MG CAP PO SCH ×2 (08:25→20:10)
[2020-05-26] MEDS: SIMVASTATIN 40 MG TAB PO SCH (20:14)
[2020-05-27] MEDS: DOCUSATE SODIUM 100 MG CAP PO SCH ×2 (08:18→20:10)
[2020-05-27] MEDS: FLUTICASONE/VILANTEROL 100/25MCG 14 PUFFS/INHALER INH SCH (08:19)
[2020-05-27] MEDS: MULTIVITAMIN TAB PO SCH (08:19)
[2020-05-27] MEDS: FUROSEMIDE 40 MG TAB PO SCH (08:19)
[2020-05-27] MEDS: FLUTICASONE PROPIONATE NA SPR 16 GM BTL SCH (08:19)
[2020-05-27] MEDS: PANTOprazole 40 MG TAB PO SCH (08:19)
[2020-05-27] MEDS: CITALOPRAM 20 MG TAB PO SCH (08:20)
[2020-05-27] MEDS: LORATADINE 10 MG TAB PO SCH (08:20)
[2020-05-27] MEDS: carvediloL 12.5 MG TAB PO SCH ×2 (08:20→16:52)
[2020-05-27] MEDS: CALCIUM 600MG + VIT D 400 IU TAB PO SCH ×2 (08:20→20:10)
[2020-05-27] MEDS: ASPIRIN 81 MG ECTAB PO SCH (08:20)
[2020-05-27] MEDS: POTASSIUM CHLORIDE 20 MEQ TABCR PO SCH (08:20)
[2020-05-27] MEDS: POLYETHYLENE (MIRALAX) 17 GM PACK PO SCH (08:21)
[2020-05-27] MEDS: FERROUS GLUCONATE 324 MG TAB PO SCH (08:21)
--- NOTE | 2020-05-27 09:23 | Hospitalist Progress Note ---
Date of Service May 26, 2020 Assessment & Plan (1) Fall: 89-year-old female with complicated past medical history as mentioned in H&P was admitted from [facility] with a history of unwitnessed fall She has been very weak generally and has not been ambulant for the last month or so She was discharged from [facility] and has been in [facility] since that time She was found on the ground beside her bed curled up without any incontinence or significant injury Skeletal survey and CAT scan remain unremarkable Not being able to participate in physical therapy due to the weakness 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 Does not have any focal localizing signs but remains generally weak and lethargic We will give aspirin and no Plavix due to thrombocytopenia (2) Generalized weakness: She has been generally weak and almost bedbound for the last few months In and out from [facility] and discharged to [facility] last weakness seems to be multifactorial-deconditioning from recent recurrent h ospitalization and infections, metastatic breast cancer on recent chemo, doubt a stroke and/or infection are causing this problem Again she will need to have PT and OT evaluation Discussed with daughter in length She has this kind of episode at times when she does not communicate, does not move and does not eat Immediately after the episode she becomes alert and awake and start talking and eating She has had 1 of this episode here-remains hemodynamically stable We will ask for palliative care consult for further direction of management Appreciate palliative care input and recommendation Recommend home hospice, as of now, plan is for home hospice on Friday Tried to discuss with daughter, Joan, however not able to reach her History of CVA Was on aspirin and Plavix Plavix is off due to thrombocytopenia Echo and carotid ultrasound remain unremarkable Repeat CT of the head did show right temporal hypodensity which is suggestive of infarction Discussed with Dr. London Only aspirin will be continued and Plavix will be discontinued due to thrombocytopenia and to decrease the risk of bleeding Speech therapy evaluation barium swallow study recommended to document any aspiration while eating She has been eating and drinking reasonably Video swallow could not be done due to mental status and extreme drowsiness and weakness Patient will not be able to do any video swallow at this time (3) Altered mental status: Noted to have more confusion few days prior, noted by previous hospitalist Remains pleasantly confused Seems to be answering some questions appropriately (4) CKD (chronic kidney disease), stage III: Has chronic kidney disease with normal electrolytes (5) Complete heart block: Status post pacemaker placement No acute cardiac issue (6) COPD (chronic obstructive pulmonary disease): No acute exacerbation (7) Diastolic CHF: Has bilateral leg edema seems to be chronic Chest x-ray did not show any fluid overload and of CHF Echo of the heart-atrial fibrillation with ventricular pacing rhythm, severe concentric left ventricular hypertrophy with normal wall motion and EF of 65 to 70%, aortic valve sclerosis without significant stenosis, mild aortic regurgitation Has edema with possible mild CHF-wound check with chest x-ray Will try very small dose of Lasix (8) C. difficile colitis: History of C. difficile colitis about 3 weeks back Has been on vancomycin, finished po vanco (9) Diabetes mellitus: SSI (10) Metastatic breast cancer: Has not been getting any chemo and radiation (11) Thrombocytopenia: Antineoplastic chemotherapy induced pancytopenia History of pancytopenia and thrombocytopenia Likely secondary to chemo induced and could be due to infiltration of bone marrow from breast cancer We will monitor DVT prophylaxis SCDs CODE STATUS DNR/DNI Tried to reach pt's daughter Joan today (05/26) but no answer. Patient's other daughter present at the bedside and updated. Admission and Anticipated Discharge Date Admission Date: May 20, 2020 Subjective Patient is sitting up in bed, in no acute distress. She appears very fatigued. Patient's daughter is sitting at the bedside. Tried to reach the other daughter, Joan, however I was only able to leave a message earlier today. When I called in the evening I was not able to leave a message and nobody answered. Review of Systems Review of Systems: Unobtainable due to cognitive status Patient appears very fatigued, does not have any complaints Physical Exam Physical Exam: Physical Exam: Elderly female, sitting up in bed, in no acute distress, appears comfortable but remains very fatigued Constitutional: + ill appearing, + obese, in no acute distress Eyes: PERRL, conjunctivae normal, anicteric sclerae ENMT: external ear and nose normal, oropharynx normal Neck: trachea midline, no thyromegaly Respiratory: normal respiratory effort; no respiratory distress Auscultation: + crackles (Minimal crackles at the bases) Cardiovascular: Rate/Rhythm: + abnormal rate and + abnormal rhythm Heart Sounds: no murmur Extremities: + edema (Bilateral leg edema seems to be improving), UE edema L>R Gastrointestinal (Abdomen): Inspection/Auscultation: abdomen normal to inspection; abdomen not distended Percussion/Palpation: abdomen soft; abdomen nontender Musculoskeletal: No acute arthritis involving any joints Neurologic: Patient is somnolent, appears extremely weak Results & Data Results & Data ([facility]) Vital Signs (Past 12 Hours) Vital Signs Temp Pulse Pulse Resp BP Pulse Ox 05/27/20 08:03 36.8 C 101 H 20 159/88 H 97 05/26/20 22:56 36.3 C L 102 H 18 155/77 H 94 (1) Fall Encounter type: initial encounter Qualified Code(s): W19.XXXA - Unspecified fall, initial encounter (2) Altered mental status Altered mental status type: stupor Qualified Code(s): R40.1 - Stupor
--- NOTE | 2020-05-27 09:27 | Hospitalist Progress Note ---
Date of Service May 27, 2020 Assessment & Plan (1) Fall: 89-year-old female with complicated past medical history as mentioned in H&P was admitted from [facility] with a history of unwitnessed fall She has been very weak generally and has not been ambulant for the last month or so She was discharged from [facility] and has been in [facility] since that time She was found on the ground beside her bed curled up without any incontinence or significant injury Skeletal survey and CAT scan remain unremarkable Not being able to participate in physical therapy due to the weakness 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 Does not have any focal localizing signs but remains generally weak and lethargic We will give aspirin and no Plavix due to thrombocytopenia (2) Generalized weakness: She has been generally weak and almost bedbound for the last few months In and out from [facility] and discharged to [facility] last weakness seems to be multifactorial-deconditioning from recent recurrent h ospitalization and infections, metastatic breast cancer on recent chemo, doubt a stroke and/or infection are causing this problem Again she will need to have PT and OT evaluation Discussed with daughter in length She has this kind of episode at times when she does not communicate, does not move and does not eat Immediately after the episode she becomes alert and awake and start talking and eating She has had 1 of this episode here-remains hemodynamically stable We will ask for palliative care consult for further direction of management Appreciate palliative care input and recommendation Recommend home hospice, as of now, plan is for home hospice on Friday Tried to discuss with daughter, Joan, however not able to reach her History of CVA Was on aspirin and Plavix Plavix is off due to thrombocytopenia Echo and carotid ultrasound remain unremarkable Repeat CT of the head did show right temporal hypodensity which is suggestive of infarction Discussed with Dr. London Only aspirin will be continued and Plavix will be discontinued due to thrombocytopenia and to decrease the risk of bleeding Speech therapy evaluation barium swallow study recommended to document any aspiration while eating She has been eating and drinking reasonably Video swallow could not be done due to mental status and extreme drowsiness and weakness Patient will not be able to do any video swallow at this time (3) Altered mental status: Noted to have more confusion few days prior, noted by previous hospitalist Remains pleasantly confused Seems to be answering some questions appropriately (4) CKD (chronic kidney disease), stage III: Has chronic kidney disease with normal electrolytes (5) Complete heart block: Status post pacemaker placement No acute cardiac issue (6) COPD (chronic obstructive pulmonary disease): No acute exacerbation (7) Diastolic CHF: Has bilateral leg edema seems to be chronic Chest x-ray did not show any fluid overload and of CHF Echo of the heart-atrial fibrillation with ventricular pacing rhythm, severe concentric left ventricular hypertrophy with normal wall motion and EF of 65 to 70%, aortic valve sclerosis without significant stenosis, mild aortic regurgitation Has edema with possible mild CHF-wound check with chest x-ray Will try very small dose of Lasix (8) C. difficile colitis: History of C. difficile colitis about 3 weeks back Has been on vancomycin, finished po vanco (9) Diabetes mellitus: SSI (10) Metastatic breast cancer: Has not been getting any chemo and radiation (11) Thrombocytopenia: Antineoplastic chemotherapy induced pancytopenia History of pancytopenia and thrombocytopenia Likely secondary to chemo induced and could be due to infiltration of bone marrow from breast cancer We will monitor DVT prophylaxis SCDs CODE STATUS DNR/DNI Tried to reach pt's daughter Joan (05/26) but no answer, I was only able to leave a message. Patient's other daughter present at the bedside and updated yesterday. Admission and Anticipated Discharge Date Admission Date: May 20, 2020 Subjective This morning, patient is lying in bed, in no acute distress. She appears very fatigued. She tells me she "just wants to sleep", does not report any complaints. Met patient's daughter at the bedside yesterday. Tried to reach the other daughter, Joan, however I was only able to leave a message. When I called in the evening again yesterday I was not able to leave a message and nobody answered. Will try to reach her again today. Review of Systems Review of Systems: All systems reviewed & are unremarkable except as noted in HPI & below Patient is very fatigued, and denies any complaints Constitutional: + malaise, + weakness and + anorexia Physical Exam Physical Exam: Physical Exam: Elderly female, laying in bed, in no acute distress, appears comfortable but remains very fatigued Constitutional: + ill appearing, + obese, in no acute distress Eyes: PERRL, conjunctivae normal, anicteric sclerae ENMT: external ear and nose normal, oropharynx normal Neck: trachea midline, no thyromegaly Respiratory: normal respiratory effort; no respiratory distress Auscultation: + crackles (Minimal crackles at the bases) Cardiovascular: Rate/Rhythm: + abnormal rate and + abnormal rhythm Heart Sounds: no murmur Extremities: + edema (Bilateral leg edema seems to be improving), UE edema L>R Gastrointestinal (Abdomen): Inspection/Auscultation: abdomen normal to inspection; abdomen not distended Percussion/Palpation: abdomen soft; abdomen nontender Musculoskeletal: No acute arthritis involving any joints Neurologic: Patient is somnolent, appears extremely weak Results & Data Results & Data ([facility]) Vital Signs (Past 12 Hours) Vital Signs Temp Pulse Pulse Resp BP Pulse Ox 05/27/20 08:03 36.8 C 101 H 20 159/88 H 97 05/26/20 22:56 36.3 C L 102 H 18 155/77 H 94 Medications Administered Current Inpatient Medications Acetaminophen (Tylenol) 650 mg PO Q4H PRN PRN Reason: Pain or Fever Stop: 06/19/20 05:57 Albuterol (Ventolin 0.083% 2.5mg/3ml) 2.5 mg INH Q4 PRN PRN Reason: Wheezing Stop: 06/19/20 05:57 Albuterol (Ventolin Hfa) 2 puffs INH Q4 PRN PRN Reason: Shortness Of Breath Or Wheezing Stop: 06/19/20 05:57 Aspirin (Ecotrin Ectab) 81 mg PO DAILY [facility] Stop: 06/19/20 08:59 Last Admin: 05/27/20 08:20 Dose: 81 mg Documented by: Carvedilol (Coreg) 12.5 mg PO BIDM [facility] Stop: 06/19/20 07:59 Last Admin: 05/27/20 08:20 Dose: 12.5 mg Documented by: Citalopram Hydrobromide (Celexa) 20 mg PO DAILY [facility] Stop: 06/19/20 08:59 Last Admin: 05/27/20 08:20 Dose: 20 mg Documented by: Docusate Sodium (Colace) 100 mg PO BID [facility] Stop: 06/19/20 08:59 Last Admin: 05/27/20 08:18 Dose: 100 mg Documented by: Ferrous Gluconate (Ferrous Gluconate) 324 mg PO DAILY [facility] Stop: 06/19/20 08:59 Last Admin: 05/27/20 08:21 Dose: 324 mg Documented by: Fluticasone Propionate (Flonase) 1 sprays NA DAILY [facility] Stop: 06/19/20 08:59 Last Admin: 05/27/20 08:19 Dose: 1 sprays Documented by: Fluticasone/Vilanterol (Breo Ellipta 100/25 Mcg Inh) 1 puffs INH DAILY [facility] Stop: 06/19/20 08:59 Last Admin: 05/27/20 08:19 Dose: 1 puffs Documented by: Furosemide (Lasix) 40 mg PO BID17 [facility] Stop: 06/19/20 08:59 Last Admin: 05/27/20 08:19 Dose: 40 mg Documented by: Loratadine (Claritin) 10 mg PO DAILY [facility] Stop: 06/19/20 08:59 Last Admin: 05/27/20 08:20 Dose: 10 mg Documented by: Metoprolol Tartrate (Lopressor) 2.5 mg IV Q6 PRN PRN Reason: Tachycardia Stop: 06/21/20 17:59 Miscellaneous Information (Pharmacist Discharge Med Rec Consult) 1 ea N/A UD PRN PRN Reason: Consult Stop: 06/19/20 05:57 Morphine Sulfate (Morphine Sulfate) 2 mg IV Q2H PRN PRN Reason: Pain Stop: 06/06/20 21:51 Last Admin: 05/23/20 22:39 Dose: 2 mg Documented by: Multivitamins (Multivitamin Tab) 1 tab PO QAM [facility] Stop: 06/19/20 08:59 Last Admin: 05/27/20 08:19 Dose: 1 tab Documented by: Multivitamins/Minerals (Caltrate Plus) 1 tab PO BID [facility] Stop: 06/19/20 08:59 Last Admin: 05/27/20 08:20 Dose: 1 tab Documented by: Nitroglycerin (Nitrostat) 0.4 mg SL UD PRN PRN Reason: Chest Pain Stop: 06/19/20 05:57 Ondansetron HCl (Zofran) 4 mg IV Q6H PRN PRN Reason: Nausea Stop: 06/19/20 05:57 Pantoprazole Sodium (Protonix) 40 mg PO DAILY [facility] Stop: 06/19/20 08:59 Last Admin: 05/27/20 08:19 Dose: 40 mg Documented by: Polyethylene Glycol (Miralax Powder Packet) 17 gm PO DAILY [facility] Stop: 06/19/20 08:59 Last Admin: 05/27/20 08:21 Dose: Not Given Documented by: Potassium Chloride (Klor-Con M20) 20 meq PO QAM [facility] Stop: 06/25/20 08:59 Last Admin: 05/27/20 08:20 Dose: 20 meq Documented by: Simethicone (Mylicon) 80 mg PO Q6 PRN PRN Reason: gas Stop: 06/19/20 05:57 Simvastatin (Zocor) 40 mg PO PM [facility] Stop: 06/19/20 20:59 Last Admin: 05/26/20 20:14 Dose: 40 mg Documented by: (1) Altered mental status Altered mental status type: stupor Qualified Code(s): R40.1 - Stupor (2) Fall Encounter type: initial encounter Qualified Code(s): W19.XXXA - Unspecified fall, initial encounter
[2020-05-27] MEDS ORDERED: HEPARIN SOD 5,000 UNIT/0.5 ML VIAL SQ SCH (11:00)
[2020-05-27 11:23] LABS: Hematocrit (blood only) 28.9 % (37-47); Mean Corpuscular Hgb Conc 31.1 g/dL (32-36); Mean Corpuscular Volume 112.5 fL (80-100); Nucleated RBC # (auto) 0.06 K/uL (0-0); Nucleated RBC % (auto) 0.8 %; RDW Coefficient of Variation 17.2 % (11.5-14.5); RDW Standard Deviation 70.3 fL (36.4-46.3); Red Blood Count 2.57 M/uL (4.2-5.4); White Blood Count 7.08 K/uL (4.8-10.8)
[2020-05-27 11:26] LABS: Mean Platelet Volume 11.1 fL (7.4-10.4); Platelet Count 67 K/uL (130-400)
[2020-05-27 11:45] LABS: BUN Creatinine Ratio 21.6 (10-20); Calcium 8.5 mg/dl (8.5-10.1); Creatinine Clr Calc Pharmacy 63.3 ml/min; Est GFR (African American) 93.5; Est GFR (Non-African American) 80.6; Potassium 3.6 mmol/L (3.5-5.1)
[2020-05-27] MEDS ORDERED: POTASSIUM CHLORIDE 20 MEQ TABCR PO STA (12:04)
[2020-05-27] MEDS: SIMVASTATIN 40 MG TAB PO SCH (20:10)
[2020-05-28] MEDS: LORATADINE 10 MG TAB PO SCH (08:00)
[2020-05-28] MEDS: FLUTICASONE PROPIONATE NA SPR 16 GM BTL SCH (08:00)
[2020-05-28] MEDS: FLUTICASONE/VILANTEROL 100/25MCG 14 PUFFS/INHALER INH SCH (08:00)
[2020-05-28] MEDS: PANTOprazole 40 MG TAB PO SCH (08:00)
[2020-05-28] MEDS: MULTIVITAMIN TAB PO SCH (08:00)
[2020-05-28] MEDS: POLYETHYLENE (MIRALAX) 17 GM PACK PO SCH (08:01)
[2020-05-28] MEDS: FERROUS GLUCONATE 324 MG TAB PO SCH (08:01)
[2020-05-28] MEDS: DOCUSATE SODIUM 100 MG CAP PO SCH ×2 (08:01→20:06)
[2020-05-28] MEDS: CITALOPRAM 20 MG TAB PO SCH (08:01)
[2020-05-28] MEDS: ASPIRIN 81 MG ECTAB PO SCH (08:03)
[2020-05-28] MEDS: FUROSEMIDE 40 MG TAB PO SCH (08:03)
[2020-05-28] MEDS: carvediloL 12.5 MG TAB PO SCH ×2 (08:03→17:28)
[2020-05-28] MEDS: CALCIUM 600MG + VIT D 400 IU TAB PO SCH ×2 (08:03→20:06)
[2020-05-28] MEDS: POTASSIUM CHLORIDE 20 MEQ TABCR PO SCH (08:04)
[2020-05-28 08:52] LABS: Creatinine Clr Calc Pharmacy 67.3 ml/min
--- NOTE | 2020-05-28 18:00 | Hospitalist Progress Note ---
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 Does not have any focal localizing signs but remains generally weak and lethargic We will give aspirin and no Plavix due to thrombocytopenia (2) Generalized weakness: She has been generally weak and almost bedbound for the last few months In and out from [facility] and discharged to [facility] last weakness seems to be multifactorial-deconditioning from recent recurrent h ospitalization and infections, metastatic breast cancer on recent chemo, doubt a stroke and/or infection are causing this problem PT and OT evaluation obtained Discussed with daughter in length She has this kind of episode at times when she does not communicate, does not move and does not eat Immediately after the episode she becomes alert and awake and start talking and eating She has had 1 of this episode here-remains hemodynamically stable We will ask for palliative care consult for further direction of management Appreciate palliative care input and recommendation Recommend home hospice, as of now, plan is for home hospice on Friday Met with daughter Joan at the bedside, and answered all her questions. History of CVA Was on aspirin and Plavix Plavix is off due to thrombocytopenia Echo and carotid ultrasound remain unremarkable Repeat CT of the head did show right temporal hypodensity which is suggestive of infarction Discussed with Dr. Blackwell Only aspirin will be continued and Plavix will be discontinued due to thrombocytopenia and to decrease the risk of bleeding Speech therapy evaluation barium swallow study recommended to document any aspiration while eating She has been eating and drinking reasonably Video swallow could not be done due to mental status and extreme drowsiness and weakness Patient will not be able to do any video swallow at this time (3) Altered mental status: Noted to have more confusion few days prior, noted by previous hospitalist Remains pleasantly confused Seems to be answering some questions appropriately (4) CKD (chronic kidney disease), stage III: Has chronic kidney disease with normal electrolytes (5) Complete heart block: Status post pacemaker placement No acute cardiac issue (6) COPD (chronic obstructive pulmonary disease): No acute exacerbation (7) Diastolic CHF: Has bilateral leg edema seems to be chronic Chest x-ray did not show any fluid overload and of CHF Echo of the heart-atrial fibrillation with ventricular pacing rhythm, severe concentric left ventricular hypertrophy with normal wall motion and EF of 65 to 70%, aortic valve sclerosis without significant stenosis, mild aortic regurgitation Has edema with possible mild CHF-wound check with chest x-ray Will try very small dose of Lasix (8) C. difficile colitis: History of C. difficile colitis about 3 weeks back Has been on vancomycin, finished po vanco (9) Diabetes mellitus: SSI (10) Metastatic breast cancer: Has not been getting any chemo and radiation (11) Thrombocytopenia: Antineoplastic chemotherapy induced pancytopenia History of pancytopenia and thrombocytopenia Likely secondary to chemo induced and could be due to infiltration of bone marrow from breast cancer We will monitor DVT prophylaxis SCDs CODE STATUS DNR/DNI Admission and Anticipated Discharge Date Admission Date: May 20, 2020 Subjective Pt is lying in bed, in NAD. Very somnolent and tired appearing. Met with pt's daughter Joan at the bedside yesterday and answered all her questions. Plan to d/c w/ home hospice tmrw. Review of Systems Review of Systems: Unobtainable due to cognitive status very somnolent and tired appearing Physical Exam Physical Exam: Physical Exam: Elderly female, laying in bed, in no acute distress, somnolent, appears comfortable but remains very fatigued Constitutional: + ill appearing, + obese, in no acute distress Eyes: PERRL, conjunctivae normal, anicteric sclerae ENMT: external ear and nose normal, oropharynx normal Neck: trachea midline, no thyromegaly Respiratory: normal respiratory effort; no respiratory distress Auscultation: + crackles (Minimal crackles at the bases) Cardiovascular: Rate/Rhythm: + abnormal rate and + abnormal rhythm Heart Sounds: no murmur Extremities: + edema (Bilateral leg edema seems to be improving), UE edema L>R Gastrointestinal (Abdomen): Inspection/Auscultation: abdomen normal to inspection; abdomen not distended Percussion/Palpation: abdomen soft; abdomen nontender Musculoskeletal: No acute arthritis involving any joints Neurologic: Patient is somnolent, appears extremely weak Results & Data Results & Data ([facility]) Vital Signs (Past 12 Hours) Vital Signs Temp Pulse Pulse Resp BP Pulse Ox 05/28/20 15:04 36.4 C L 98 H 18 156/85 H 98 05/28/20 12:09 35.6 C L 94 H 18 150/87 H 98 05/28/20 07:17 37.0 C 76 18 134/95 98 Laboratory Results 05/28/20 Range/Units 08:01 Creatinine 0.60 (0.6-1.2) mg/dl Est Cr Clr Drug Dosing 67.3 ml/min Est GFR ( Amer) 95.0 Est GFR (Non-Af Amer) 82.0 Medications Administered Current Inpatient Medications Acetaminophen (Tylenol) 650 mg PO Q4H PRN PRN Reason: Pain or Fever Stop: 06/19/20 05:57 Albuterol (Ventolin 0.083% 2.5mg/3ml) 2.5 mg INH Q4 PRN PRN Reason: Wheezing Stop: 06/19/20 05:57 Albuterol (Ventolin Hfa) 2 puffs INH Q4 PRN PRN Reason: Shortness Of Breath Or Wheezing Stop: 06/19/20 05:57 Aspirin (Ecotrin Ectab) 81 mg PO DAILY [facility] Stop: 06/19/20 08:59 Last Admin: 05/28/20 08:03 Dose: 81 mg Documented by: Carvedilol (Coreg) 12.5 mg PO BIDM [facility] Stop: 06/19/20 07:59 Last Admin: 05/28/20 17:28 Dose: 12.5 mg Documented by: Citalopram Hydrobromide (Celexa) 20 mg PO DAILY [facility] Stop: 06/19/20 08:59 Last Admin: 05/28/20 08:01 Dose: 20 mg Documented by: Docusate Sodium (Colace) 100 mg PO BID [facility] Stop: 06/19/20 08:59 Last Admin: 05/28/20 08:01 Dose: Not Given Documented by: Ferrous Gluconate (Ferrous Gluconate) 324 mg PO DAILY [facility] Stop: 06/19/20 08:59 Last Admin: 05/28/20 08:01 Dose: 324 mg Documented by: Fluticasone Propionate (Flonase) 1 sprays NA DAILY [facility] Stop: 06/19/20 08:59 Last Admin: 05/28/20 08:00 Dose: 1 sprays Documented by: Fluticasone/Vilanterol (Breo Ellipta 100/25 Mcg Inh) 1 puffs INH DAILY [facility] Stop: 06/19/20 08:59 Last Admin: 05/28/20 08:00 Dose: 1 puffs Documented by: Furosemide (Lasix) 40 mg PO QAM [facility] Stop: 06/27/20 08:59 Last Admin: 05/28/20 08:03 Dose: 40 mg Documented by: Heparin Sodium (Porcine) (Heparin Sodium (Porcine)) 5,000 units SQ Q12 [facility] Stop: 06/26/20 10:59 Loratadine (Claritin) 10 mg PO DAILY [facility] Stop: 06/19/20 08:59 Last Admin: 05/28/20 08:00 Dose: 10 mg Documented by: Metoprolol Tartrate (Lopressor) 2.5 mg IV Q6 PRN PRN Reason: Tachycardia Stop: 06/21/20 17:59 Miscellaneous Information (Pharmacist Discharge Med Rec Consult) 1 ea N/A UD PRN PRN Reason: Consult Stop: 06/19/20 05:57 Morphine Sulfate (Morphine Sulfate) 2 mg IV Q2H PRN PRN Reason: Pain Stop: 06/06/20 21:51 Last Admin: 05/23/20 22:39 Dose: 2 mg Documented by: Multivitamins (Multivitamin Tab) 1 tab PO QAM [facility] Stop: 06/19/20 08:59 Last Admin: 05/28/20 08:00 Dose: 1 tab Documented by: Multivitamins/Minerals (Caltrate Plus) 1 tab PO BID [facility] Stop: 06/19/20 08:59 Last Admin: 05/28/20 08:03 Dose: 1 tab Documented by: Nitroglycerin (Nitrostat) 0.4 mg SL UD PRN PRN Reason: Chest Pain Stop: 06/19/20 05:57 Ondansetron HCl (Zofran) 4 mg IV Q6H PRN PRN Reason: Nausea Stop: 06/19/20 05:57 Pantoprazole Sodium (Protonix) 40 mg PO DAILY [facility] Stop: 06/19/20 08:59 Last Admin: 05/28/20 08:00 Dose: 40 mg Documented by: Polyethylene Glycol (Miralax Powder Packet) 17 gm PO DAILY [facility] Stop: 06/19/20 08:59 Last Admin: 05/28/20 08:01 Dose: Not Given Documented by: Potassium Chloride (Klor-Con M20) 20 meq PO QAM [facility] Stop: 06/25/20 08:59 Last Admin: 05/28/20 08:04 Dose: 20 meq Documented by: Simethicone (Mylicon) 80 mg PO Q6 PRN PRN Reason: gas Stop: 06/19/20 05:57 Simvastatin (Zocor) 40 mg PO PM [facility] Stop: 06/19/20 20:59 Last Admin: 05/27/20 20:10 Dose: 40 mg Documented by: (1) Altered mental status Altered mental status type: stupor Qualified Code(s): R40.1 - Stupor (2) Fall Encounter type: initial encounter Qualified Code(s): W19.XXXA - Unspecified fall, initial encounter
[2020-05-28] MEDS: SIMVASTATIN 40 MG TAB PO SCH (20:06)
[2020-05-29 07:28] VITALS: PULSE 122; TEMP 97.7; O2SAT 96
--- NOTE | 2020-05-29 09:07 | Hospitalist Progress Note ---
Date of Service May 29, 2020 Assessment & Plan (1) Fall: 89-year-old female with complicated past medical history as mentioned in H&P was admitted from [facility] with a history of unwitnessed fall She has been very weak generally and has not been ambulant for the last month or so She was discharged from [facility] and has been in [facility] since that time She was found on the ground beside her bed curled up without any incontinence or significant injury Skeletal survey and CAT scan remain unremarkable Not being able to participate in physical therapy due to the weakness 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 weakness seems to be multifactorial-deconditioning from recent recurrent hospitalization and infections, metastatic breast cancer on recent chemo, doubt a stroke and/or infection are causing this problem PT and OT evaluation obtained Discussed with daughter in length She has this kind of episode at times when she does not communicate, does not move and does not eat then she becomes alert and awake and start talking and eating remains hemodynamically stable Palliative care consult for further direction of management Appreciate palliative care input and recommendation Recommend home hospice, as of now, plan is for home hospice on Friday (today) Met with daughter Joan at the bedside, and answered all her questions. History of CVA Was on aspirin and Plavix Plavix is off due to thrombocytopenia Echo and carotid ultrasound remain unremarkable Repeat CT of the head did show right temporal hypodensity which is suggestive of infarction Discussed with Dr. Blackwell (neurology) Only aspirin will be continued and Plavix will be discontinued due to thrombocytopenia and to decrease the risk of bleeding Speech therapy evaluation barium swallow study recommended to document any aspiration while eating She has been eating and drinking reasonably Video swallow could not be done due to mental status and extreme drowsiness and weakness Patient will not be able to do any video swallow at this time (3) Altered mental status: Noted to have more confusion few days prior, noted by previous hospitalist Remains pleasantly confused Seems to be answering some questions appropriately (4) CKD (chronic kidney disease), stage III: Has chronic kidney disease with normal electrolytes (5) Complete heart block: Status post pacemaker placement No acute cardiac issue (6) COPD (chronic obstructive pulmonary disease): No acute exacerbation (7) Diastolic CHF: Has bilateral leg edema seems to be chronic Chest x-ray did not show any fluid overload and of CHF Echo of the heart-atrial fibrillation with ventricular pacing rhythm, severe concentric left ventricular hypertrophy with normal wall motion and EF of 65 to 70%, aortic valve sclerosis without significant stenosis, mild aortic regurgitation Tried small dose of Lasix, will cont. (8) C. difficile colitis: History of C. difficile colitis about 3 weeks back Has been on vancomycin, finished po vanco (9) Diabetes mellitus: SSI (10) Metastatic breast cancer: Has not been getting any chemo and radiation (11) Thrombocytopenia: Antineoplastic chemotherapy induced pancytopenia History of pancytopenia and thrombocytopenia Likely secondary to chemo induced and could be due to infiltration of bone marrow from breast cancer We will monitor DVT prophylaxis SCDs CODE STATUS DNR/DNI Admission and Anticipated Discharge Date Admission Date: May 20, 2020 Subjective Patient is lying in bed, very somnolent, however opens her eyes to voice stimuli. Her voice is very soft. Review of Systems Review of Systems: very somnolent and tired appearing Physical Exam Physical Exam: Physical Exam: Elderly female, laying in bed, in no acute distress, somnolent, appears comfortable but remains very fatigued Constitutional: + ill appearing, + obese, in no acute distress Eyes: PERRL, conjunctivae normal, anicteric sclerae ENMT: external ear and nose normal, oropharynx normal Neck: trachea midline, no thyromegaly Respiratory: normal respiratory effort; no respiratory distress Auscultation: + crackles (Minimal crackles at the bases) Cardiovascular: Rate/Rhythm: + abnormal rate and + abnormal rhythm Heart Sounds: no murmur Extremities: + edema (Bilateral leg edema seems to be improving), UE edema L>R Gastrointestinal (Abdomen): Inspection/Auscultation: abdomen normal to ins pection; abdomen not distended Percussion/Palpation: abdomen soft; abdomen nontender Musculoskeletal: No acute arthritis involving any joints Neurologic: Patient is somnolent, appears extremely weak Results & Data Results & Data ([facility]) Vital Signs (Past 12 Hours) Vital Signs Temp Pulse Pulse Resp BP Pulse Ox 05/29/20 07:27 36.5 C 122 H 20 151/84 H 96 05/28/20 23:59 36.7 C 86 20 156/84 H 95 Medications Administered Current Inpatient Medications Acetaminophen (Tylenol) 650 mg PO Q4H PRN PRN Reason: Pain or Fever Stop: 06/19/20 05:57 Albuterol (Ventolin 0.083% 2.5mg/3ml) 2.5 mg INH Q4 PRN PRN Reason: Wheezing Stop: 06/19/20 05:57 Albuterol (Ventolin Hfa) 2 puffs INH Q4 PRN PRN Reason: Shortness Of Breath Or Wheezing Stop: 06/19/20 05:57 Aspirin (Ecotrin Ectab) 81 mg PO DAILY [facility] Stop: 06/19/20 08:59 Last Admin: 05/28/20 08:03 Dose: 81 mg Documented by: Carvedilol (Coreg) 12.5 mg PO BIDM [facility] Stop: 06/19/20 07:59 Last Admin: 05/28/20 17:28 Dose: 12.5 mg Documented by: Citalopram Hydrobromide (Celexa) 20 mg PO DAILY [facility] Stop: 06/19/20 08:59 Last Admin: 05/28/20 08:01 Dose: 20 mg Documented by: Docusate Sodium (Colace) 100 mg PO BID [facility] Stop: 06/19/20 08:59 Last Admin: 05/28/20 20:06 Dose: Not Given Documented by: Ferrous Gluconate (Ferrous Gluconate) 324 mg PO DAILY [facility] Stop: 06/19/20 08:59 Last Admin: 05/28/20 08:01 Dose: 324 mg Documented by: Fluticasone Propionate (Flonase) 1 sprays NA DAILY [facility] Stop: 06/19/20 08:59 Last Admin: 05/28/20 08:00 Dose: 1 sprays Documented by: Fluticasone/Vilanterol (Breo Ellipta 100/25 Mcg Inh) 1 puffs INH DAILY [facility] Stop: 06/19/20 08:59 Last Admin: 05/28/20 08:00 Dose: 1 puffs Documented by: Furosemide (Lasix) 40 mg PO QAM [facility] Stop: 06/27/20 08:59 Last Admin: 05/28/20 08:03 Dose: 40 mg Documented by: Heparin Sodium (Porcine) (Heparin Sodium (Porcine)) 5,000 units SQ Q12 [facility] Stop: 06/26/20 10:59 Loratadine (Claritin) 10 mg PO DAILY [facility] Stop: 06/19/20 08:59 Last Admin: 05/28/20 08:00 Dose: 10 mg Documented by: Metoprolol Tartrate (Lopressor) 2.5 mg IV Q6 PRN PRN Reason: Tachycardia Stop: 06/21/20 17:59 Miscellaneous Information (Pharmacist Discharge Med Rec Consult) 1 ea N/A UD PRN PRN Reason: Consult Stop: 06/19/20 05:57 Morphine Sulfate (Morphine Sulfate) 2 mg IV Q2H PRN PRN Reason: Pain Stop: 06/06/20 21:51 Last Admin: 05/23/20 22:39 Dose: 2 mg Documented by: Multivitamins (Multivitamin Tab) 1 tab PO QAM [facility] Stop: 06/19/20 08:59 Last Admin: 05/28/20 08:00 Dose: 1 tab Documented by: Multivitamins/Minerals (Caltrate Plus) 1 tab PO BID [facility] Stop: 06/19/20 08:59 Last Admin: 05/28/20 20:06 Dose: 1 tab Documented by: Nitroglycerin (Nitrostat) 0.4 mg SL UD PRN PRN Reason: Chest Pain Stop: 06/19/20 05:57 Ondansetron HCl (Zofran) 4 mg IV Q6H PRN PRN Reason: Nausea Stop: 06/19/20 05:57 Pantoprazole Sodium (Protonix) 40 mg PO DAILY [facility] Stop: 06/19/20 08:59 Last Admin: 05/28/20 08:00 Dose: 40 mg Documented by: Polyethylene Glycol (Miralax Powder Packet) 17 gm PO DAILY [facility] Stop: 06/19/20 08:59 Last Admin: 05/28/20 08:01 Dose: Not Given Documented by: Potassium Chloride (Klor-Con M20) 20 meq PO QAM [facility] Stop: 06/25/20 08:59 Last Admin: 05/28/20 08:04 Dose: 20 meq Documented by: Simethicone (Mylicon) 80 mg PO Q6 PRN PRN Reason: gas Stop: 06/19/20 05:57 Simvastatin (Zocor) 40 mg PO PM [facility] Stop: 06/19/20 20:59 Last Admin: 05/28/20 20:06 Dose: 40 mg Documented by: (1) Fall Encounter type: initial encounter Qualified Code(s): W19.XXXA - Unspecified fall, initial encounter (2) Altered mental status Altered mental status type: stupor Qualified Code(s): R40.1 - Stupor
[2020-05-29] MEDS: MULTIVITAMIN TAB PO SCH (09:53)
[2020-05-29] MEDS: FERROUS GLUCONATE 324 MG TAB PO SCH (09:53)
[2020-05-29] MEDS: CALCIUM 600MG + VIT D 400 IU TAB PO SCH (09:53)
[2020-05-29] MEDS: carvediloL 12.5 MG TAB PO SCH (09:53)
[2020-05-29] MEDS: CITALOPRAM 20 MG TAB PO SCH (09:54)
[2020-05-29] MEDS: ASPIRIN 81 MG ECTAB PO SCH (09:54)
[2020-05-29] MEDS: FUROSEMIDE 40 MG TAB PO SCH (09:54)
[2020-05-29] MEDS: LORATADINE 10 MG TAB PO SCH (09:54)
[2020-05-29] MEDS: POTASSIUM CHLORIDE 20 MEQ TABCR PO SCH (09:54)
[2020-05-29] MEDS: PANTOprazole 40 MG TAB PO SCH (09:59)
[2020-05-29] MEDS: FLUTICASONE PROPIONATE NA SPR 16 GM BTL SCH (09:59)
[2020-05-29] MEDS: POLYETHYLENE (MIRALAX) 17 GM PACK PO SCH (09:59)
[2020-05-29] MEDS: DOCUSATE SODIUM 100 MG CAP PO SCH (09:59)
[2020-05-29] MEDS: FLUTICASONE/VILANTEROL 100/25MCG 14 PUFFS/INHALER INH SCH (10:00)
[2020-05-29] MEDS ORDERED: STROKE PATIENT DISCHARGE STA (10:51)
--- NOTE | 2020-05-29 11:10 | Discharge Summary ---
Date of Service May 29, 2020 Admission HPI Per Admitting Provider This 89-year-old female with past medical history significant for type 2 diabetes, not on any medications, chronic kidney disease stage III, hyperlipidemia, COPD, nocturnal hypoxemia, history of complete heart block status post pacemaker, hypertension, diastolic CHF, history of CVA in the past, hypertension, GERD, C. diff colitis, urinary incontinence, metastatic breast cancer, chronic bilateral thoracic back pain, chemo induced neutropenia, thrombocytopenia, history of pancytopenia. Currently at [facility] rehabilitation who comes with a fall. The patient had a couple of courses of pneumonia and was admitted to [place]. After that about 2-1/2 weeks ago, she developed diarrhea and C. diff was positive, she went to the ER and got discharged and then she became more lethargic at home. The patient lives with her daughter. Daughter works in [employer] [place]. Daughter noticed that she was likely having difficulty speaking. She thought the patient had a stroke and she called to EMS and was admitted to [place] where she was treated for infectious C. difficile colitis. She stayed there for 2-1/2 weeks and she also had ascites, taken about 730ml of fluid and was treated with antibiotics for spontaneous bacterial peritonitis. She still has some few more courses of p.o. vancomycin. The patient since then become very weak. As per daughter, she did not ambulate since she got admitted to [place] and she is somewhat confused. She couple of times had aspiration episodes at [place]. As per daughter, speech is not back to her normal. 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 Her Plavix was stopped secondary to thrombocytopenia. Felodipine was discontinued due to low blood pressure and Coreg dose was reduced. She has signed POLST form as per [place] and she is DNR. She was discharged to [facility] yesterday. She was found on the floor, no one saw her falling on the floor and she does not know how long she stayed there and she was brought in here and imaging studies CAT scan shows subacute or right chronic temporal lobe infarct. Currently, the patient is somewhat drowsy, arousable, can tell her name, knows that she is in the hospital, can tell today's date. Denies any chest pain, no nausea, no abdominal pain, no headaches, no fever, no chills, no cough, no shortness of breath. Hemodynamics are stable, could not get complete history from the patient as patient is somewhat drowsy. All history we got from the daughter who is at bedside and from the records. Admission Exam Per Admitting Provider VITAL SIGNS: Temperature 36.5, pulse 68, respiratory rate 18, blood pressure 163/-100 and oxygen 100% on room air. HEENT: No pallor, no icterus. Pupil equal, round, and reactive to light. 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 NECK: No JVD, no neck masses. CARDIOVASCULAR: S1, S2 heard, regular rate and rhythm, no murmur, no gallop. RESPIRATORY SYSTEM: Normal AP diameter. No accessory muscle use. No wheezing, no crackles. ABDOMEN: Soft, bowel sounds present, nontender. No distention. CENTRAL NERVOUS SYSTEM: Alert and oriented x3. Speech is clear. Tongue is midline. Obeys simple commands, not able to fully lift her upper extremities and also not able to lift her lower extremities. Babinski negative. EXTREMITIES: Bilateral lower extremity, mild edema seen. No erythema seen. Principal Diagnosis Metastatic breast cancer Diastolic CHF Generalized weakness Dysphasia History of CVA CKD stage III Thrombocytopenia Discharge Exam Physical Exam: Elderly female, laying in bed, in no acute distress, somnolent, appears comfortable but remains very fatigued Constitutional: + ill appearing, + obese, in no acute distress Eyes: PERRL, conjunctivae normal, anicteric sclerae ENMT: external ear and nose normal, oropharynx normal Neck: trachea midline, no thyromegaly Respiratory: normal respiratory effort; no respiratory distress Auscultation: + crackles (Minimal crackles at the bases) Cardiovascular: Rate/Rhythm: + abnormal rate and + abnormal rhythm Heart Sounds: no murmur Extremities: + edema (Bilateral leg edema seems to be improving), UE edema L>R Gastrointestinal (Abdomen): Inspection/Auscultation: abdomen normal to inspection; abdomen not distended Percussion/Palpation: abdomen soft; abdomen nontender Musculoskeletal: No acute arthritis involving any joints Neurologic: Patient is somnolent, appears extremely weak Discharge Data Allergies Allergy/AdvReac Type Severity Reaction Status Date / Time pollen extracts Allergy Unknown Verified 05/20/20 02:32 Consultations 05/20/20 02:14 ED Decision to Admit Stat 05/20/20 05:58 Consult Case Management - Discharge Planning Routine Consult Case Management - Discharge Planning Routine 05/20/20 08:00 Consult Neurology Routine 05/22/20 16:18 Consult Palliative Care Routine Ordered Studies 05/20/20 00:22 CT cervical spine wo con Urgent IMPRESSION: 1. There is no evidence of fracture or subluxation involving the cervical spine. 2. Osteopenia and spondylotic change as above. 3. Question sclerotic lesions within the right posterior third rib and the body of C3. These are pathologically indeterminant and osteoblastic metastases are not excluded. Correlate with patient's oncological history will be required. 4. Question mild pulmonary nodularity in the right upper lobe. CT head/brain wo con Urgent IMPRESSION: 1. There is loss of adams-white matter differentiation identified in the right temporal lobe concerning for subacute ischemia. 2. There is no hemorrhage or mass effect. 3. Adams-white matter differentiation is otherwise maintained. 05/20/20 05:58 US carotid doppler BI Routine IMPRESSION: 1. There is no sonographic evidence of hemodynamically significant stenosis in the right carotid arterial system. 2. There is evidence of 50-69% stenosis of the proximal left internal carotid artery by velocity criteria. 3. Antegrade flow is shown in the vertebral arteries. 05/21/20 07:41 CT head/brain wo con Routine IMPRESSION: 1. No significant change from the preceding study 2. No evidence of acute hemorrhage 3. Persistent right temporal lobe hypodensity, likely secondary to a subacute infarct 4. Moderate white matter disease and old left basal ganglia infarct Hospital Course (1) Fall: 89-year-old female with complicated past medical history as mentioned in H&P was admitted from [facility] with a history of unwitnessed fall She has been very weak generally and has not been ambulant for the last month or so She was discharged from [facility] and has been in [facility] since that time She was found on the ground beside her bed curled up without any incontinence or significant injury Skeletal survey and CAT scan remain unremarkable Not being able to participate in physical therapy due to the weakness 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 Does not have any focal localizing signs but remains generally weak and lethargic We will give aspirin and no Plavix due to thrombocytopenia (2) Generalized weakness: She has been generally weak and almost bedbound for the last few months In and out from [facility] and discharged to [facility] weakness seems to be multifactorial-deconditioning from recent recurrent hospitalization and infections, metastatic breast cancer on recent chemo, doubt a stroke and/or infection are causing this problem PT and OT evaluation obtained Discussed with daughter in length She has this kind of episode at times when she does not communicate, does not move and does not eat then she becomes alert and awake and start talking and eating remains hemodynamically stable Palliative care consult for further direction of management Appreciate palliative care input and recommendation Recommend home hospice, as of now, plan is for home hospice on Friday (today) Met with daughter Joan at the bedside, and answered all her questions. History of CVA Was on aspirin and Plavix Plavix is off due to thrombocytopenia Echo and carotid ultrasound remain unremarkable Repeat CT of the head did show right temporal hypodensity which is suggestive of infarction Discussed with Dr. Blackwell (neurology) Only aspirin will be continued and Plavix will be discontinued due to thrombocytopenia and to decrease the risk of bleeding Speech therapy evaluation barium swallow study recommended to document any aspiration while eating She has been eating and drinking reasonably Video swallow could not be done due to mental status and extreme drowsiness and weakness Patient will not be able to do any video swallow at this time (3) Altered mental status: Noted to have more confusion few days prior, noted by previous hospitalist Remains pleasantly confused Seems to be answering some questions appropriately (4) CKD (chronic kidney disease), stage III: Has chronic kidney disease with normal electrolytes (5) Complete heart block: Status post pacemaker placement No acute cardiac issue (6) COPD (chronic obstructive pulmonary disease): No acute exacerbation (7) Diastolic CHF: Has bilateral leg edema seems to be chronic Chest x-ray did not show any fluid overload and of CHF Echo of the heart-atrial fibrillation with ventricular pacing rhythm, severe concentric left ventricular hypertrophy with normal wall motion and EF of 65 to 70%, aortic valve sclerosis without significant stenosis, mild aortic regurgita tion Tried small dose of Lasix, will cont. (8) C. difficile colitis: History of C. difficile colitis about 3 weeks back Has been on vancomycin, finished po vanco (9) Diabetes mellitus: SSI (10) Metastatic breast cancer: Has not been getting any chemo and radiation (11) Thrombocytopenia: Antineoplastic chemotherapy induced pancytopenia History of pancytopenia and thrombocytopenia Likely secondary to chemo induced and could be due to infiltration of bone marrow from breast cancer monitored while inpt Total Time Total Time Spent Total Time Spent (In Minutes): 35 Total Time Includes: Examination of the Patient, Discharge Planning, Medication Reconciliation and Communication With Other Providers Discharge Plan Discharge Items Patient Disposition: Hospice - Home Reason For Visit: FALL Discharge Diagnosis: Metastatic breast cancer Diastolic CHF Generalized weakness Dysphasia History of CVA CKD stage III Thrombocytopenia Activity: Per Instructions section Non-emergency contact: Primary Care Provider Call non-emergency contact if: you have any medication questions and your symptoms worsen Follow-up/Referrals: Jim Parry at [place] [Primary Care Provider] - Diet: Regular Diet Texture: Pureed (blended smooth) Addtl Attending Provider Instructions: Patient to be discharged with home hospice. Pt can continue medications as long as patient can take medications orally. Discuss with home hospice nurse if patient cannot take medications anymore, as some medications may not be helpful then. Pending Studies at Discharge: No Stand-Alone Forms: [facility] [employer] Medications and DC Order Prescriptions: Continued aspirin 81 mg Tablet,Delayed Release (Dr/Ec) 81 mg PO DAILY RF: 0 ferrous gluconate 240 mg (27 mg iron) Tablet 240 mg PO DAILY RF: 0 loratadine 10 mg Tablet 10 mg PO DAILY RF: 0 Centrum Silver 0.4-300-250 mg-mcg-mcg Tablet 1 tab PO DAILY RF: 0 Calcium 600 + D(3) 600 mg calcium- 200 unit Capsule 1 cap PO BID RF: 0 cranberry 180 mg PO BID RF: 0 Colace Clear 50 mg Capsule 50 mg PO BID RF: 0 fluticasone propionate [Flonase Allergy Relief] 50 mcg/actuation [place],Suspension 1 spray INTRANASAL DAILY RF: 0 polyethylene glycol 3350 [Miralax] 17 gram Powder In Packet 17 g PO DAILY RF: 0 simvastatin 40 mg Tablet 40 mg PO PM RF: 0 pantoprazole 40 mg Tablet,Delayed Release (Dr/Ec) 40 mg PO DAILY RF: 0 fluticasone propion-salmeterol [Wixela Inhub] 100-50 mcg/dose Blister With Device 1 inh INHALATION BID RF: 0 carvedilol 25 mg Tablet 12.5 mg PO BIDM RF: 0 albuterol sulfate 2.5 mg /3 mL (0.083 %) Solution For Nebulization 2.5 mg INHALATION Q4 PRN (Reason: Wheezing) RF: 0 citalopram 20 mg Tablet 20 mg PO DAILY RF: 0 nitroglycerin [Nitrostat] 0.4 mg Tablet, Sublingual 0.4 mg sublingual UD PRN (Reason: Chest Pain) RF: 0 albuterol sulfate 90 mcg/actuation Hfa Aerosol Inhaler 2 puff INHALATION Q4 PRN (Reason: Shortness Of Breath Or Wheezing) RF: 0 amoxicillin 500 mg Capsule 2,000 mg PO ONCE PRN (Reason: 1 hour prior to dental work) RF: 0 acetaminophen 500 mg Tablet 500 mg PO Q6H MDD 3000mg/24hr PRN (Reason: Fever Or Pain) RF: 0 simethicone 80 mg Tablet,Chewable 80 mg PO Q6 PRN (Reason: gas) RF: 0 Changed furosemide 40 mg Tablet 40 mg PO QAM Qty: 0 RF: 0 Discontinued vancomycin [Firvanq] 50 mg/mL Recon Soln 500 mg PO Q6 RF: 0 Discharge Orders: Discharge Order (Routine); Ordered 05/29/20 Ordered By: Dwayne Hermosillo Admission Data Admit Date/Time: 05/20/20 03:59 Attending Provider: Dwayne Hermosillo Admit Provider: Marshal Arriaza Primary Care Provider: Jim Parry [place] Other Providers: Jim Parry [place] ; Chela Kilgore ; Marshal Arriaza ; Shazia Wright ; Jonathan Yee ; Shazia Miguel ; Wood Blackwell ; Leslie Saunders Other Interventions: Discharge Summary Assessment (RN) Last Done: 05/29/20 11:03 DC Date/Time DO NOT enter until pt leaves facility: 05/29/20 13:20
[2020-05-29 11:11] VITALS: BP 153/81
== END 2020-05-29 13:20 | disposition hospice, home (50) | DRG 64 ==
LOC: ED 00:09 → 2S 03:59 → SUATTDRO 03:59 → 2S 04:40 → 2N 05-21 14:21 → 2W 05-25 19:51